=== PATIENT | female | born 1955 | race Caucasian/White ===

== ENCOUNTER → 2018-01-21 14:20 | Outpatient (CLI) | payer SELFPAY ==
--- NOTE | 2018-01-21 14:28 | BI_ITS ---
MAMMOGRAPHY - BILATERAL SCREENING REASON FOR EXAM: Female, 62 years old. Routine annual screening examination. PERTINENT HISTORY: Sister with breast cancer. TECHNIQUE: Digital bilateral breast charline (3D mammographic acquisition) in the CC and MLO projections. 2-D mediolateral oblique (MLO) and craniocaudad (CC) views of both breasts were obtained. CAD: Full Field Digital Mammography with Computer Added Detection was performed. COMPARISON: Comparison is made with prior study dated January 17, 2016. FINDINGS: Breast Composition: The breasts are almost entirely fatty. There are no dominant masses or suspicious calcifications. No other significant abnormalities are identified. There has been no significant change since the prior study. BI/SCREENING MAMM (CAD), BILAT IMPRESSION: Stable bilateral screening mammogram. Yearly follow-up mammogram recommended. (A) ASSESSMENT CATEGORY: BIRADS Category 1: Negative. A letter regarding these results will be sent to the patient by the facility within 30 days. Approximately 10% of breast cancers are not detected by mammography. A normal mammogram should not delay biopsy of a clinically suspicious abnormality. [id number] Electronically Signed: Cristian Vasquez MD at 8:12 EDT Tel [phone], Service support ,
--- NOTE | 2018-01-21 14:29 | BD_ITS ---
STUDY: DUAL ENERGY X-RAY ABSORPTIOMETRY / DXA REASON FOR EXAM: Female, 62 years old. The patient is postmenopausal. Loss of height. TECHNIQUE: Bone Mineral Density (BMD) measurements of both forearms were obtained. COMPARISON: Comparison is made with prior study January 17, 2016. FINDINGS: Right Forearm: g/cm2 (1.059) / T-score (1.9) / Z-score (3.0) Left Forearm: g/cm2 (1.019) / T-score (1.5) / Z-score (2.5) BD/Dexa Bone Density/Append Skel IMPRESSION: The patient is considered normal as outlined below according to World [place] Organization (WHO) criteria with a low fracture risk. Reference Information: The T-score is the number of standard deviations above or below the standard which is normal for young adults at their peak bone mineral density. The World Health Organization (WHO) interprets the T-scores as follows: Above -1 Normal bone density Between -1 and -2.5 Osteopenia Equal to / or below -2.5 Osteoporosis As a practical clinical guideline, osteopenia may be graded as follows: Mild -1 through -1.5 Moderate -1.6 through -2.0 Severe -2.1 through -2.4 The Z-score is the number of standard deviations above or below age-matched controls. A Z-score of less than -1.5 would be considered abnormal. References: 1. NIH Osteoporosis and Related Bone Diseases http://www.osteo.org 2. International Society for Clinical Densitometry http://www.iscd.org 3. National Osteoporosis Foundation http://www.nof.org Electronically Signed: Cristian Vasquez MD at 15:44 EDT Tel [phone], Service support ,
== END ==
PROVIDERS: Family Provider Nurse Practitioner; PCP Nurse Practitioner; Visit Provider Nurse Practitioner
DX: Z12.31 Encounter for screening mammogram for malignant neoplasm of breast (principal); Z78.0 Asymptomatic menopausal state
CPT/HCPCS: 77063; 77067; 77081

== ENCOUNTER → 2019-03-05 12:14 | Outpatient (CLI) | payer SELFPAY ==
--- NOTE | 2019-03-05 12:20 | BI_ITS ---
MAMMOGRAPHY - BILATERAL SCREENING REASON FOR EXAM: Female, 63 years old. Routine annual screening examination. PERTINENT HISTORY: Sister with breast cancer. TECHNIQUE: Digital bilateral breast janine (3D mammographic acquisition) in the CC and MLO projections. 2-D mediolateral oblique (MLO) and craniocaudad (CC) views of both breasts were obtained. CAD: Full Field Digital Mammography with Computer Added Detection was performed. COMPARISON: Comparison is made with prior study dated January 21, 2018 and January 17, 2016. FINDINGS: Breast Composition: The breasts are almost entirely fatty. There are no dominant masses or suspicious calcifications. Stable benign-appearing bilateral axillary lymph nodes. No other significant abnormalities are identified. There has been no significant change since the prior study. BI/SCREEN MAMM (CAD) W/JANINE BILAT IMPRESSION: Stable bilateral screening mammogram. Yearly follow-up mammogram recommended. (A) ASSESSMENT CATEGORY: BIRADS Category 2: Benign. A letter regarding these results will be sent to the patient by the facility within 30 days. Approximately 10% of breast cancers are not detected by mammography. A normal mammogram should not delay biopsy of a clinically suspicious abnormality. [id number] Electronically Signed: Cristian Vasquez, at 13:53 EST , Service support ,
== END ==
PROVIDERS: Family Provider Nurse Practitioner; PCP Nurse Practitioner; Referring Provider Nurse Practitioner; Visit Provider Nurse Practitioner
DX: Z12.31 Encounter for screening mammogram for malignant neoplasm of breast (principal); Z80.3 Family history of malignant neoplasm of breast
CPT/HCPCS: 77063; 77067

== ENCOUNTER 2021-07-06 14:23 | Outpatient (CLI) | payer OTHER, SELFPAY ==
--- NOTE | 2021-07-06 14:35 | BI_ITS ---
MAMMOGRAPHY - BILATERAL SCREENING REASON FOR EXAM: Female, 65 years old. Routine annual screening examination. PERTINENT HISTORY: Sister with breast cancer. TECHNIQUE: Digital bilateral breast janine (3D mammographic acquisition) in the CC and MLO projections. 2-D mediolateral oblique (MLO) and craniocaudad (CC) views of both breasts were obtained. CAD: Full Field Digital Mammography with Computer Added Detection was performed. COMPARISON: Comparison is made with prior examination dated 03/05/2019 and 01/21/2018. FINDINGS: Breast Composition: The breasts are almost entirely fatty. There are no dominant masses or suspicious calcifications. Stable small benign-appearing bilateral axillary nodes. Stable scattered microcalcifications. No other significant abnormalities are identified. There has been no significant change since the prior study. BI/SCRN MAMM (CAD)W/JANINE BILAT IMPRESSION: Stable bilateral screening mammogram. Yearly follow-up mammogram recommended. (A) ASSESSMENT CATEGORY: BIRADS Category 2: Benign. A letter regarding these results will be sent to the patient by the facility within 30 days. Approximately 10% of breast cancers are not detected by mammography. A normal mammogram should not delay biopsy of a clinically suspicious abnormality. [id number] Electronically Signed: Cristian Vasquez MD at 15:36 EST ,
== END 2021-07-06 23:59 | disposition home or self-care (01) ==
PROVIDERS: PCP Nurse Practitioner; Visit Provider Nurse Practitioner
DX: Z12.31 Encounter for screening mammogram for malignant neoplasm of breast (principal); Z80.3 Family history of malignant neoplasm of breast
CPT/HCPCS: 77063; 77067

== ENCOUNTER 2023-07-08 08:27 | Outpatient (RCR) | payer OTHER, SELFPAY | END 2023-07-28 23:59 | LOC: NS 08:27 | PROVIDERS: PCP Nurse Practitioner Family; Referring Provider Specialist; Visit Provider Specialist | DX: M25.551 Pain in right hip (principal); E66.01 Morbid (severe) obesity due to excess calories; Z68.41 Body mass index [BMI] 40.0-44.9, adult; M16.11 Unilateral primary osteoarthritis, right hip | CPT/HCPCS: 97802 ==

== ENCOUNTER 2023-08-07 13:30 | Outpatient (RCR) | payer OTHER, SELFPAY ==
--- NOTE | 2023-07-10 11:31 | HP.PTEVAL ---
Patient's Visit Information Visit Information Visit Information: BOBBY OCHOA is a 67 year old F referred to Physical Therapy by Dr. Cody Holley MD with a diagnosis of LBP, R hip OA, Pain in R hip. Date of Evaluation: 07/10/23 Physical Therapist: MARGARET Deras Visit Plan Frequency: 2x /Week Duration: 2 Months Plan: 2X/ week for 8 weeks for R hip and knee AROM/PROM/AAROM, strengthening of the R hip starting on the mat table and progressing to standing (even if it is standing on the L LE), neutral spine core stability, gait training, functional activities with HEP HEP: bridges, heel slides, QS, supine hip abd Subjective Subjective: Pt is scheduled for hip surgery September 03. She is not sure she can wait that long with the pain. She is having a THR. She is also having back pain and R knee pain as well. She is not sure she can do PT due to the pain. She takes Advil as needed for the pain and at times it does not touch the pain. She can not go for walks since last fall due to being in so much pain. She is not doing any exercises at home. She has stairs to go to the basement. It is has a railing as well and goes 2 feet to a stair. She has back pain when she walks and light housework as well. She feels that standing bothers her back more than sitting. She sleeps ok but wakes often but it is not due to pain. She has a hard time getting situated in bed at night. Pain R hip pain: Pain Intensity (Out of 10): 0 Pain Intensity Range: 7 LBP: Pain Intensity (Out of 10): 7 Objective Objective: Gait: Walks with shorter stride length and increase trunk flexion. Walks with decrease arm swing LE MMT: R hip flex 10.7 and L 13.2 R knee ext 22.6 and L 21.7 R knee flex 10.1 and L 9.9 R hip abd 10.1 and L 10.9 Bridges: 1/2 normal ROM Tight into HS, gastroc, heel slides Balance/Special Test Scores Lower Extremity Functional Score: 23 Goals Goal 1:: I HEP Goal Time Frame: 6-8 Weeks Goal 2:: Decrease pain and be able to settle down more quickly at night when going to sleep without having to toss and turn Goal Time Frame: 6-8 Weeks Goal 3:: Increase LE strength (at the time of the eval: LE MMT: R hip flex 10.7 and L 13.2 R knee ext 22.6 and L 21.7 R knee flex 10.1 and L 9.9 R hip abd 10.1 and L 10.9 Bridges: 1/2 normal ROM) Goal Time Frame: 6-8 Weeks Goal 4:: Be able to walk a little farther per subjective with less pain Goal Time Frame: 6-8 Weeks Anticipated Interventions Patient/Client Instruction: Educate patient on: Condition and Plan of Care For the Purpose of:: To decrease pain, To increase ROM, To improve nutrient delivery to tissue, To improve muscle performance and motor function, To improve ability to perform ADL's, To increase tolerance to activity/condition/position, To improve performance and independence with ADL's, To decrease level of supervision to perform tasks, To improve ability of physical actions for home/community/work/leisure, To improve gait and locomotor functions, To improve health of tissue, To decrease soft tissue restriction and To increase flexibility/ROM Therapeutic Exercise to Include: Strength training, Endurance training, Postural training, Flexibilty training, Gait and locomotor training, Neuromotor development, Passive ROM, Active ROM and Dynamic Lumbar Stabilization For the Purpose of:: To decrease pain, To increase ROM, To improve nutrient delivery to tissue, To improve muscle performance and motor function, To improve ability to perform ADL's, To increase tolerance to activity/condition/position, To improve performance and independence with ADL's, To decrease level of supervision to perform tasks, To improve ability of physical actions for home/community/work/leisure, To improve gait and locomotor functions, To improve health of tissue, To decrease soft tissue restriction, To increase flexibility/ROM, To improve endurance and To improve safety with gait Functional Training to Include: Gait training For the Purpose of:: To improve gait and locomotor functions and To improve safety with gait Manual Therapy Techniques to Include: Passive ROM For the Purpose of:: To increase ROM Text: Thank you for the opportunity to evaluate your patient. For Medicare and Medicare HMO plans, please review the plan of care and approve it. It will need to be FAXED BACK to us at [phone] for Medicare purposes. For Medicare only, by signing this I certify the plan of care. Please let me know if there are questions or concerns regarding this plan of care. Physician Signature: Date:
--- NOTE | 2023-08-07 14:00 | HP.PTDCSUM ---
Discharge Summary D/C summary: It has been my pleasure to treat BOBBY OCHOA referred by Dr. Cody Holley MD, with the diagnosis of LBP, R hip OA, Pain in R hip for a total of 5 visit(s). Discharge Date: 08/07/23 Please see the following information for a summary of their discharge status. Subjective Subjective: Last week she did not have a good week but this week is much better. She did walk a little way down the road to sons house that was up hill and down hill on way back. The Dr is scheduled surgery September 03. She is doing exercises at home. She feels that if she keeps up her routine at home it will help the pain till surgery. The pain is comes and goes. Her R hip is more relaxed when she goes to sleep. Pain R hip pain: Pain Intensity (Out of 10): 2 LBP: Pain Intensity (Out of 10): 2 Overall Improvement % Improvement: 55 Objective Objective/Function: Not progressing as far as walking distance goes. LE MMT: R hip flex 15 and L 13.4 R knee ext 28 and L 22 R knee flex 14 and L 17 Discussed importance of continuing HEP Goals Goal 1:: I HEP Goal Progress: Goal Met Goal 2:: Decrease pain and be able to settle down more quickly at night when going to sleep without having to toss and turn Goal Progress: Goal Met Goal 3:: Increase LE strength (at the time of the eval: LE MMT: R hip flex 10.7 and L 13.2 R knee ext 22.6 and L 21.7 R knee flex 10.1 and L 9.9 R hip abd 10.1 and L 10.9 Bridges: 1/2 normal ROM) Goal Progress: Goal Met Goal 4:: Be able to walk a little farther per subjective with less pain Goal Progress: Not Progressing Plan Plan: DC PT to HEP D/C Information Discharge Comments: DC PT to HEP d/c sentence: If there are questions or concerns regarding this patient's physical therapy, please feel free to call me at [phone]. Thank you for the referral of this patient. Sincerely, Maggie Toro, MPT Balance/Gait/Functional tests Balance/Special Test Scores Lower Extremity Functional Score: 26 Improvement % Improvement: 55
== END 2023-08-07 19:00 | disposition home or self-care (01) ==
LOC: PT 13:30
PROVIDERS: PCP Nurse Practitioner Family; Referring Provider Specialist; Visit Provider Specialist
DX: M54.50 Low back pain, unspecified (principal); M16.11 Unilateral primary osteoarthritis, right hip; M25.551 Pain in right hip
CPT/HCPCS: 97110; 97161; 97530

== ENCOUNTER 2023-09-04 11:37 | Observation (INO) | payer SELFPAY, OTHER ==
--- NOTE | 2023-08-08 12:29 | EKG12_ITS ---
Test Reason : PRE OP Blood Pressure : / mmHG Vent. Rate : 072 BPM Atrial Rate : 072 BPM P-R Int : 158 ms QRS Dur : 084 ms QT Int : 388 ms P-R-T Axes : 024 -12 -14 degrees QTc Int : 424 ms Normal sinus rhythm Low voltage QRS Nonspecific T wave abnormality Abnormal ECG Confirmed by Matty Saleh ([id number]), map editor EDGAR CALDERON ([id number]) on 08/09/2023 7:23:20 AM Referred By: Cody Holley Confirmed By:Matty Saleh
[2023-08-08 13:00] LABS: Absolute Lymphocyte Count 1.93 X10^3/uL (0.83-4.51); Absolute Neutrophil Count 3.7 X10^3/uL (2.0-7.7); Basophil# 0.04 X10^3/uL; Basophil% 0.6 % (0-1); Eosinophil# 0.18 X10^3/uL; Eosinophils% 2.8 % (0-5); Hematocrit 41.8 % (37-47); Hemoglobin 13.6 g/dL (12.0-15.0); Lymphocyte # 1.93 X10^3/ul (0.83-4.51); Lymphocyte % 30.4 % (19-41); Mean Corp Hgb Conc 32.5 g/dL (32-36); Mean Corpuscular Hgb 29.2 pg (27.0-32.0); Mean Corpuscular Volume 89.7 fL (81-99); Mean Platelet Vol. 10.3 fl (6.2-12.0); Monocyte# 0.49 X10^3/uL; Monocyte% 7.7 % (0-10); NRBC Flagged by Analyzer 0 % (0-5); Neutrophil % 58.3 % (47-70); Platelet Count 217 K/mm3 (150-450); RBC Distribution Width CV 13.7 % (11.6-14.6); Red Blood Count 4.66 M/mm3 (4.2-5.4); White Blood Count 6.4 K/mm3 (4.4-11.0)
[2023-08-08 13:21] LABS: Albumin, Serum 3.6 g/dL (3.2-5.0); Anion Gap 3 (5-15); BUN 9 mg/dL (7-18); BUN/Creat Ratio 10.8 RATIO (10-20); Calcium,Total 9.6 mg/dL (8.5-10.1); Chloride 108 mmol/L (98-107); Creatinine, Serum 0.84 mg/dL (0.55-1.02); EST Glomerular Filtration Rate 72 mL/min (>60); Est Glom Filt Rate - Afr Amer 88 mL/min (>60); Glucose 82 mg/dL (74-106); Potassium 3.8 mmol/L (3.5-5.1); Sodium Level 140 mmol/L (136-145)
[2023-08-08 13:36] LABS: Magnesium 2.1 mg/dL (1.6-2.6)
--- NOTE | 2023-08-26 12:34 | PCM.HP.BLA ---
History and Physical History and Physical? Patient Name: Lila Blackburn : 1955 From:? ANGELA WALTERS PA-C? DATE OF PRE-OPERATIVE EXAM: 08/26/2023 DATE OF SURGERY:? 09/04/2023 SCHEDULED PROCEDURE:? Right total hip arthroplasty HISTORY OF PRESENT ILLNESS: Preoperative history and physical exam was performed on August 26, 2023.? This is a 67-year-old female who has been having ongoing pain for several years in the right hip.? Her pain can reach 8/10 with activities.? Patient's pain is been achiness and sharp in the hip.? Pain is increased with going up and down stairs, walking.? She has start up pain.? Pain is located in the right groin.? Pain occasionally awakens her at night.? She has difficulty with getting dressed putting on her socks and shoes, housework, and shopping.? Patient has tried erjw-gbk-hdnaaeu ibuprofen with no significant relief.? She has been through acute care clinical nurse specialist without relief.? She has gone through weight loss without relief in her symptoms.? She denies past history of surgery on her right hip.? Patient has had previous lumbar spinal fusion.? She does get some residual pain and discomfort and her back at times.? She has obtain surgical clearance from the primary care provider Aurelia Puga.? She has no previous history of DVT or pulmonary embolism.? Patient has medical history pertinent for depression, hypertension, vitamin D deficiency and vitamin B12 deficiency.? Denies any recent fevers, chills, recent infections.? No recent chest pain or shortness of breath.? After failing conservative measures and discussing all treatment options with Dr. Cody Holley, the patient does wish to proceed with a direct anterior right total hip arthroplasty. REVIEW OF SYSTEMS: Review Of Systems: Constitutional: Reports anxiety, but denies anorexia, change in appetite, fever, difficulty sleeping, weight change. Cardiovasular: Denies chest pain, heart murmur, irregular heartbeat and peripheral vascular disease. Respiratory: Denies asthma, cough, pneumonia, sleep apnea, shortness of breath, tuberculosis and wheezing. Gastrointestinal: Reports constipation, diarrhea and nausea, but denies heartburn, rectal itching, bloody stools and vomiting. Genitourinary: Denies incontinence. Musculoskeletal: Reports pain and trouble walking, but denies leg swelling and weakness. Skin: Denies Raynaud's, history of shingles and tattoo. Neurological: Reports numbness/tingling but denies ambulatory dysfunction, dizziness and tremor. Psychiatric: Reports anxiety and stress, but denies depression, insomnia and mental illness. Hematologic/Lymphatic: Reports anemia and past transfusion, but denies bleeding/bruising tendency. Reviewed, no changes. PAST MEDICAL HISTORY: Advance Care Plan: No Advance Directives Effective Date: 01/29/2018 Other Directive, LIVING WILL Effective Date: 06/27/2023 Past Medical History: Medical Problems: Depression, High Blood Pressure, vitamin D deficiency, Vitamin B12 deficiency Accidents: None Surgical Hx: Gallbladder - (1980) [facility] Hernia Repair - (2007) [facility] Hysterectomy - (2003) [facility] Back Surgery In [place] In September Of 2016 Knee Replacement RT - (05/12/2018) [email or web address] LT TKR - (09/15/2018) [email or web address] Section - (1988) TOI PHILLIPS? Anesthesia Complications: None Assistive Devices: Glasses, Dentures Reviewed and updated. SOCIAL HISTORY: Social History: Marital: .Occupation: Homemaker.Work Status: Housewife.Hand Dominance: Right-handed. Personal Habits:? Cigarette Use: Never.Smokeless Tobacco: Never Used Smokeless Tobacco.E-Cigarette Use: Never used.Alcohol: Denies use.Drug Use: Denies Use.Enjoy Exercising: Exercises 1-3 X/Week. Reviewed, no changes. VITALS: Ht: 62 Wt: 219lb Wt k.338 BMI: 40.1 BP: 112/68 Pulse: 69 Resp: 16 T: 97.8 T: 36.6C Pain Level: 5 O2SatR: 97 ALLERGIES: No Known Drug Allergy? MEDICATIONS: Mobic 7.5 mg 1 by mouth twice a day, Lisinopril 20 mg 1 by mouth every day, Vitamin D 50 mcg (1999 [place]) not through pcp PRE-OP EXAM:? General appearance:NORMAL? ? ? Other: Eyes: Conjunctivae and lids: NORMAL? Pupils: ERR Ears, Nose, Mouth, and Throat: NORMAL? Other: Inspection of lips, teeth and gums: NORMAL? ?Other: Neck: Examination of neck: no masses noted. Respiratory: Assessment of respiratory effort: NORMAL? ?Other: ?Auscultation of lungs: clear to auscultation no wheezes, rhonchi or rales. Cardiovascular:? Auscultation of heart: regular rate and rhythm, positive systolic murmur PHYSICAL EXAMINATION: Patient does walk with an antalgic gait.? Right hip is without any erythema or signs of infection.? No rash appreciated in the skin fold with skin pannus.? She has tenderness to palpation over the right lateral hip at the greater trochanteric region.? She has obligatory rotation with hip flexion, hip flexion 40, internal rotation 15, external rotation 15.? She has 2/5 hip flexion strength secondary to pain.? There was no appreciable rash or skin irritation in the skin pannus right hip. IMAGING STUDIES: Previous x-rays of the right hip reveal joint space narrowing, subchondral sclerosis, osteophyte formation consistent with severe stage IV soyc-lv-coyf osteoarthritis.? There is also evidence of lumbar spinal fusion. IMPRESSION: 1.? Severe right hip osteoarthritis 2.? History of lumbar spine fusion 3.? Depression 4.? Hypertension 5.? Vitamin D deficiency 6.? Vitamin B12 deficiency 7.? Morbid obesity with BMI 40.1 PLAN: Dr. Cody Holley did discuss and review with the patient all treatment options including surgical versus nonsurgical options.? Patient does wish to proceed with the above-stated procedure.? Potential risks, benefits, and complications of the procedure were discussed in detail including but not limited to , infection, nerve and blood vessel damage, persistent pain, numbness, tingling, paresthesias, blood clot, pulmonary embolism, and requirement for possible further surgery.? The patient expressed full understanding and has no further questions for the doctor.? Patient does agree to proceed with the above-stated procedure and has signed the surgery consent form. POST-OP MEDICATION PLAN: Pain Medications: Postoperative pain regimen will be initiated by Dr. Cody Holley in the hospital.? Patient was instructed of the morbid obesity and she will be placed on doxycycline for 2 weeks postoperatively.? I advised her that she is more sensitive to the sunlight on this medication and should take appropriate precautions.? Patient will also use bofs-ial-lgwaclr probiotic supplement.? I also advised patient that once she removes the Mepilex dressing she is to be using a 4 x 4 gauze pad detecting the proximal incision from the skin pannus.? She voiced understanding and agreement. DVT Prophylaxis:? Aspirin 81 mg twice daily for 4 weeks postoperatively.? Denies past history of DVT or pulmonary embolism This dictation was created using voice recognition software. Phonetic and/or grammatical errors may exist. ___? I have re-examined the patient.? There are no clinical changes since date of exam. ___? See progress notes for changes. ___? Dictated on admission Date: ? ? ?Time: Signature:
[2023-09-04] VITALS (14 sets, daily range): BP systolic 87–129; BP diastolic 54–79; PULSE 48–95; RESP 14–18; TEMP 36.1–36.6; O2SAT 92–100; BMI 39.5
[2023-09-04] MEDS: Lactated Ringers 1,000 ML 999 ML IV ×2 (07:28→12:27)
[2023-09-04] MEDS: Magnesium 1 GM over 15 mins IV (07:28)
[2023-09-04] MEDS: Celecoxib 200 MG Capsule 400 MG PO (07:36)
[2023-09-04] MEDS: Gabapentin 600 MG Tablet PO (07:36)
[2023-09-04] MEDS: Acetaminophen 500 MG Tablet 1000 MG PO ×2 (07:36→22:12)
[2023-09-04 08:07] LABS: Bedside Glucose 75 mg/dL (74-106)
--- NOTE | 2023-09-04 10:00 | HIP_PTH ---
PATIENT: BOBBY OCHOA LOC: MS3 U#:[id number] AGE/SX: 67/F [place] [facility] [place]04[place]: Dr. Cody Holley MD : 1955 BED: 1 DIS: 09/06/2023 SPEC #: [id number] RECD: 09/04/23 12:51 STATUS: ARLENE SARA #: [id number] CLAUDIA: 09/04/23 10:[address]: Cody Holley DEPT: SURGICAL PATHOLOGY RECD BY: Brinda Rojas ENTERED: 09/04/23 13:29 SP TYPE: TOTAL HIP OTHR DR: Aurelia Puga, RENEE-Lee Tissues: Hip, NOS Procedures: Decalcification bone/plaque Surgery Specimen Level IV HEADER OPERATION: ERAS, anterior right total hip arthroplasty PRE-OP DIAGNOSIS: Right hip osteoarthritis TISSUE SUBMITTED: Bone and soft tissue right hip MICROSCOPIC DIAGNOSIS Bone and tissue of right hip, total hip resection: Severe degenerative joint disease. Mild synovial hyperplasia. AM: 09/09/2023 MICROSCOPIC DESCRIPTION Slides are reviewed. GROSS DESCRIPTION Received is one container labeled with the patient's name and designated bone and soft tissue right hip. The specimen consists of a cadena femoral head (with portion of femoral neck). The femoral head measures 5.0 x 5.0 x 4.0 cm. Also present in the container is a piece of bone consistent with a portion of femoral neck which measures 3.5 x 1.5 x 1.0cm. The articular surface displays prominent osteophyte formation, eburnation and bone erosion. Also present in the specimen container are multiple irregular fragments of bone reamings and pink-yellow soft tissue measuring in aggregate 9.0 x 9.0 x 2.5 cm. Basket Hand Weaver sections are submitted in two cassettes as follows: 1 - soft tissue, 2 - femoral head after decalcification. UVALDO/ 09/04/23 TC:5 CPT: 72299, 15183
[2023-09-04] MEDS: dexAMETHasone 10 MG/ML Vial IV (10:15)
[2023-09-04] MEDS: Cefazolin 2 GM in 0.9% Normal Saline (100mL Bag) 100 ML IV (10:15)
[2023-09-04] MEDS: TXA 1000mg in NS100 100ml (IVPB at Incision) 660 MG IV (10:33)
--- NOTE | 2023-09-04 11:10 | RAD_ITS ---
STUDY: X-RAY - PELVIS AND RIGHT HIP REASON FOR EXAM: Female, 67 years old. PAIN TECHNIQUE: 3 fluoroscopic spot films of the pelvis and right hip. COMPARISON: None. FINDINGS: There is a new right hip arthroplasty replacement. There is no periprosthetic fracture. There is adjacent soft tissue gas, compatible with recent surgery. There is a non-specific bowel gas pattern. Normal visualized soft tissue structures. Normal visualized right iliac bone. Normal right superior and inferior pubic rami. Normal pubic symphysis. Normal right ischial tuberosity. RAD/Hip 1 view with Pelvis IMPRESSION: New right hip arthroplasty replacement, with no periprosthetic fracture. Electronically Signed: Saran Nguyen MD at 12:04 EDT ,
[2023-09-04] MEDS: TXA 1000mg in NS100 100ml (IVPB at Closure) 660 MG IV (11:26)
--- NOTE | 2023-09-04 11:35 | PCM.OPRPT ---
Report of Operation Date of Procedure: 09/04/23 Pre-Operative Diagnosis: Right hip primary osteoarthritis Post-Operative Diagnosis: Right hip primary osteoarthritis Surgery/Procedure Performed:: Right minimally invasive direct anterior total hip replacement Description of Surgical Findings:: Stable hip with equal leg length Surgeon: Cody Holley stone and plate preparer apprentice: Campbell Cloud Type of Anesthesia: General Anesthesiologist: Elroy Castro Special Medications: 2 g Ancef, 1 g TXA at incision, 1 g TXA closure, 10 mg Decadron, joint cocktail (5 mg Duramorph, 30 mL of 0.5% Ropivicaine, 1000 units of epinephrine, 30 mg of Toradol) Specimen's removed: Bony cuts Estimated Blood Loss (mL): 600 Fluids Replaced: 1500 ml Description of Procedure: Components used: 1. Insignia [place] femoral stem size 4 high offset 2. Morris trident 2 acetabular shell size 52 mm 3. [place] X3 polyethylene E 4. [place] Biolox delta 36mm, -5mm femoral head Brief history operative indications: 67 yo F who failed conservative measures for their hip osteoarthritis. X-rays were consistent with osteoarthritis including joint space narrowing, osteophyte formation and subchondral cysts. Total hip replacement was discussed with the patient with risks and benefits including but not limited to blood loss, DVTs, PEs, neurovascular damage, dislocation, general risks of anesthesia including loss of life. Patient demonstrated an understanding medical clearance is obtained the patient was consented for surgery. Procedure: On the date of procedure the patient's right hip was marked in the preoperative area. Patient was then taken back to the operating room where anesthesia assumed control of the C-spine and airway and administered anesthetic. Patient was transferred to the operating table and placed in the supine position. The hips were placed at the break of the bed and a sacral bump was placed. The right lower extremity was then prepped out in a sterile fashion using chlorhexidine while the surgeon scrubbed. The PA was vital in the positioning of the patient. Upon reentering the room the right lower extremity was draped in the standard orthopedic fashion and the incision was marked. A timeout was called and everyone agreed upon the side, the site, the procedure be performed, antibody given, and patient's identity. At this time incision was made through skin, subcutaneous tissue, and fat down to fascia. The fascia was then incised and the TFL was retracted laterally. A retractor was placed on the lateral border of the femoral neck. Attention was directed to the inferior portion of the approach and all crossing vessels were identified and appropriately coagulated. A retractor was then placed on the medial portion of the femoral neck. The anterior capsule was then cleared of all soft tissue and then H shaped capsulotomy was made. The retractors were then placed inside the capsule. The femoral neck was identified and a cleanup cut was made. At this time a power corkscrew was used to remove the femoral head. Attention was then turned toward the acetabulum where the soft tissues were appropriately retracted and the acetabulum was sequentially reamed to 52 mm. A 52 mm cup was then selected and impacted into place. Acetabular liner was impacted into place and locking mechanism was verified. The position of the acetabular cup was then verified under live fluoroscopy. Attention was then turned to the femur. Soft tissue releases on the medial and lateral femoral neck were appropriately done, the leg was externally rotated and lateralized. A Kenny retractor was placed medially and proximally to the greater trochanter this allowed appropriate visualization and exposure of the femoral canal. Rongeour was then used to remove excess lateral bone. A canal finder and entry broach were used to open the proximal canal. Once we verified we were down the femoral canal we subsequently broached up to a size 4 femur. The appropriate neck was placed in the previously selected head was trialed with a -5 mm neck. Traction was pulled and the hip was reduced with internal rotation. Once it was appropriately reduced and stability was checked. There was minimal shuck, equal leg lengths and appropriate stability with hyperextension and external rotation as well as with 90? flexion and internal rotation. Fluoroscopy was then also used to verify the position of the components and leg lengths using the contralateral side for comparison. The trial components were then dislocated the proximal femur was again exposed and the components were removed from the wound. The final components were verified and opened. The wound was copiously irrigated out with normal saline. The acetabulum was checked for any residual debris. The final components were placed and impacted. Traction and internal rotation were again used to reduce the hip. After adequate reduction the hip remained stable with appropriate leg lengths. The final components were once again checked with live fluoroscopy and were found to be satisfactory. The wound was then copiously irrigated with normal saline once more, and hemostasis was obtained. Closure was then done using #1 Vicryl runner to close the fascia. A 2-0 vicryl interuppted sutures were used to close the subcutaneous skin. A 3-0 Monocryl and Steri-Strips were used for final skin closure. A Silverlon dressing was placed. Patient was awakened by anesthesia and transferred to the [facility]. Patient was then transferred to the PACU for recovery. During the course of the procedure the physician network operations lead (PE) played a vital role. Their intimate knowledge of my steps in the procedure aided in safe and expedient completion of the procedure. The PE played a vital rolls in positioning particularly in obtaining the appropriate positioning of the sacral bump. The PE was also vital in the retraction of soft tissues during the exposure and especially the femoral work as this is a vital part of the procedure to prevent complications and fractures. The PE was also vital and protecting soft tissues during times of bony cuts and reaming. He also played a vital role in closure with my direct supervision. The PE was also important during reduction and dislocation of the joint and trials intraoperatively. Postoperative plan: Patient will get 24 hours postop antibiotics. Patient will get in-house physical therapy and will be weight-bear as tolerated. Patient will follow up in office in 2 weeks for a wound check and x-rays. Aspirin 81 mg twice daily. Complications No intraoperative complications Admit VTE Documentation VTE Present on Admission: No VTE Mechan Device Prophylaxis: SCD's and Thigh High TON Hose VTE Pharm Prophylaxis ordered?: Yes
[2023-09-04] MEDS: JPS (Morphine 10mg/ml) OPERA.SITE (11:36)
--- NOTE | 2023-09-04 12:38 | RAD_ITS ---
STUDY: X-RAY - PELVIS AND RIGHT HIP REASON FOR EXAM: Female, 67 years old. Post Op -- AP both hips on single mireya/lateral of op hip PACU TECHNIQUE: 2 views of the pelvis and hip. COMPARISON: None. FINDINGS: The patient is status post right total hip replacement. There is good alignment. Degenerative changes of the symphysis pubis. RAD/Hip Min 2 Views (Portable) IMPRESSION: The patient is status post right total hip replacement. There is good alignment. Electronically Signed: Cristian Vasquez MD at 13:00 EDT ,
--- NOTE | 2023-09-04 15:35 | CON.PCM.HO_ITS ---
Assessment & Plan Assessment/Plan (1) Hypertension: PLAN: Plan #RIght anterior total hip replacement due to osteoarthritis * today is POD 0. * management as per primary service orthopedics * PT/OT consult. Fall precautions * pain management as per primary service * incentive spirometry * #Hypotension: Blood pressures running low with systolic being in the 90s. Will hold lisinopril and hydrate with normal saline at 150 cc/h for total of 2 bags. #Hypertension: on lisinopril. Hold lisinopril due to BP running low. IV hydralazine prn DVT prophylaxis; as per primary service. Thank you for the courtesy of the consult. The hospitalist service will continue to follow with you. HPI Consult Data Date of Consult: 09/04/23 HPI Narrative Reason for Consultation: medical management HPI Narrative: BOBBY OCHOA, is a 67 F with a past medical history as outlined. She was admitted to the service of orthopedic surgery on 09/04/2023 for right total hip arthroplasty on account of ongoing right hip pain for several years. Pain was limiting her activities of daily living. She therefore had a right anterior total hip arthroplasty on 09/04/2023. Hospital service was consulted for medical management. Patient was seen and examined after surgery. She complained of lightheadedness and weakness. She also complained of a bit of pain in her knee. Pain was well- controlled. Review of systems otherwise negative. Her blood pressure has been running low, with her systolic in the 90s systolic. She denies any nausea or vomiting or diarrhea. [facility] Medical History (Updated 09/04/23 @ 15:[address] Mildred Cedeño MD) Anxiety Depression Heartburn History of IBS Hypertension Leg cramps Migraine headache Non-smoker Restless legs Wears dentures Wears glasses Home Medications calcium carb-Ca gluc 500 mg calcium-magnesium ox-Mg gluc 250 mg tablet (Calcium Magnesium) 2 tab PO DAILY 08/08/23 [History Last Taken 09/02/23] cartilage 40 mg-collagen II 10 mg-boron 5 mg-hyaluronate 3.3 mg tablet (Joint Health) 3 tab PO DAILY 08/08/23 [History Last Taken 09/02/23] cholecalciferol (vitamin D3) 125 mcg (5,000 unit) tablet (Vitamin D3) 125 mcg PO DAILY 08/08/23 [History Last Taken 09/02/23] lactobacillus combo no.11 15 billion cell sprinkle capsule (Probiotic) 1 cap PO DAILY 08/08/23 [History Last Taken 09/02/23] lisinopril 20 mg tablet 20 mg PO DAILY 08/26/23 [History Last Taken 09/03/23] Allergy/AdvReac Type Severity Reaction Status Date / Time No Known Allergies Allergy Verified 09/04/23 07:19 Surgical History (Updated 08/08/23 @ 08:47 by Alfreda Menendez) History of back surgery (~2016) History of (~1988) History of cholecystectomy (~1980) History of hernia repair (~2007) History of hysterectomy (~2003) History of total left knee replacement (~2018) History of total right knee replacement (~2018) Social History Smoking Status: Never smoker ROS Constitutional Constitutional: Reports fatigue, malaise and weakness; Denies anorexia, chills or fever(s) Eyes Eyes: Denies change in vision ENT HEENT: Denies dysphagia Cardiovascular Cardiovascular: Denies chest pain, edema, lightheadedness, palpitations, paroxysmal nocturnal dyspnea, rapid heart rate or syncope Gastrointestinal Gastrointestinal: Reports nausea; Denies abdominal pain, constipation, diarrhea or vomiting Genitourinary Genitourinary: Denies dysuria Musculoskeletal Musculoskeletal: Reports joint pain; Denies arthralgias or back pain Neurologic Neurologic: Reports dizziness; Denies confusion, disequilibrium, focal weakness, headache(s), numbness, seizure-like activity, seizures or syncope Psychiatric Psychiatric: Denies anxiety or depression Endocrine Endocrinology: Denies change in body appearance Physical Exam Const alert and oriented x3 Constitutional Narrative: looks frail and weak General Appearance: cooperative HEENT normocephalic, head/scalp atraumatic, hearing grossly normal bilaterally, moist oral mucous membranes and oropharynx normal Mouth: oral and palatal mucosa normal Eyes PERRL, EOMs intact bilaterally and conjunctivae normal Neck no lymphadenopathy and supple Resp normal respiratory effort, no retractions, no use of accessory muscles and clear to auscultation bilaterally Cardio regular rate, regular rhythm, S1 normal heart sound, S2 normal heart sound and no murmurs GI normal to inspection, nondistended, normoactive bowel sounds, soft to palpation, non-tender, non-distended and hepatosplenomegaly Extremity Extremity Narrative: intact dressing over right hip at site of surgery Neuro oriented x3, CN's II-XII intact bilaterally, no focal motor deficits and no sensory deficits noted Sensorium / Orientation: awake and alert Psych affect normal Lab / Micro Data 08/08/23 12:45 08/08/23 12:45 Labs: Laboratory Results - last 24 hr 09/04/23 07:20: POC Glucose 75 Imaging Radiology Impression Hip/Pelvis X-Ray 09/04/23 11:10 IMPRESSION: New right hip arthroplasty replacement, with no periprosthetic fracture. Electronically Signed: Saran Nguyen MD at 12:04 EDT , Hip X-Ray 09/04/23 12:38 IMPRESSION: The patient is status post right total hip replacement. There is good alignment. Electronically Signed: Cristian Vasquez MD at 13:00 EDT , Charges/Coding Visit Charges Inpatient E&M: 68479 Subs Hosp L2
[2023-09-04] MEDS: Ondansetron 4 MG/2 ML Vial IV (17:21)
[2023-09-04] MEDS: 0.9% Normal Saline (1000mL) 1,000 ML 150 ML IV (18:07)
[2023-09-04] MEDS: Cefazolin 1 GM/50 ML BAG IV (18:07)
[2023-09-04] MEDS: Senna/Docusate Sodium 1 Tablet 2 TABLET PO (22:12)
[2023-09-04] MEDS: Aspirin 81 MG TAB.CHEW PO (22:12)
[2023-09-05] MEDS: Cefazolin 1 GM/50 ML BAG IV (01:33)
[2023-09-05] MEDS: 0.9% Normal Saline (1000mL) 1,000 ML 150 ML IV (01:33)
[2023-09-05 04:04] VITALS: BP 95/56; PULSE 48; RESP 18; TEMP 36.4; O2SAT 96
[2023-09-05 06:33] VITALS: BP 91/56; PULSE 52; RESP 18; TEMP 36.5; O2SAT 94
[2023-09-05] MEDS: Acetaminophen 500 MG Tablet 1000 MG PO ×3 (06:37→21:25)
[2023-09-05 07:28] LABS: Hemoglobin 10.3 g/dL (12.0-15.0); Mean Corp Hgb Conc 31.2 g/dL (32-36); Mean Corpuscular Hgb 29.3 pg (27.0-32.0); Mean Corpuscular Volume 93.8 fL (81-99); Mean Platelet Vol. 10.9 fl (6.2-12.0); Platelet Count 189 K/mm3 (150-450); RBC Distribution Width CV 13.9 % (11.6-14.6); RBC Distribution Width SD 47.4 fl (35.1-43.9); Red Blood Count 3.52 M/mm3 (4.2-5.4); White Blood Count 12.3 K/mm3 (4.4-11.0)
[2023-09-05 08:09] LABS: Anion Gap 3 (5-15); BUN 10 mg/dL (7-18); BUN/Creat Ratio 14.6 RATIO (10-20); Calcium,Total 8.4 mg/dL (8.5-10.1); Chloride 113 mmol/L (98-107); Creatinine, Serum 0.69 mg/dL (0.55-1.02); EST Glomerular Filtration Rate 91 mL/min (>60); Est Glom Filt Rate - Afr Amer 110 mL/min (>60); Estimated Creatinine Clearance 75.63 ml/min; Glucose 103 mg/dL (74-106); Potassium 4.6 mmol/L (3.5-5.1); Sodium Level 143 mmol/L (136-145)
[2023-09-05] MEDS: Ensure Surgery 237 ML LIQUID PO ×2 (08:26→12:03)
[2023-09-05] MEDS: Aspirin 81 MG TAB.CHEW PO ×2 (08:26→16:56)
[2023-09-05 08:30] VITALS: BP 90/50; PULSE 52; RESP 16; TEMP 36.4; O2SAT 96
[2023-09-05] MEDS: Lactobacillis Acidophilus 1 CAP PO (09:33)
[2023-09-05] MEDS: Famotidine 20 MG Tablet PO (09:34)
[2023-09-05] MEDS: Cholecalciferol (Vit D3) 125 MCG CAPSULE (5,000 UNITS) PO (09:34)
[2023-09-05] MEDS: Senna/Docusate Sodium 1 Tablet 2 TABLET PO ×2 (09:34→21:25)
--- NOTE | 2023-09-05 11:56 | PN.ORTHO_ITS ---
Subjective Subjective The patient was sitting in bed side chair upon examination. Patient denies any chest pain, shortness of breath, nausea or vomiting, or calf pain. Pain is controlled on medications. No adverse overnight events. Patient does report that she has had some dizziness yesterday and has continued today. She states the dizziness is much better today. She has been having some softer blood pressure readings. Patient was treated with previous IV fluids. She does report that she has had this happen before with other surgeries. Nursing also reports that they did remove the scopolamine patch this morning. Patient has had the lisinopril on hold. Objective Data Objective Data Vital Signs: Vital Signs Temp Pulse Resp BP Pulse Ox O2 Del Method O2 Flow Rate 97.5 F L 52 L 16 90/50 L 96 Room Air 2 09/05/23 08:30 09/05/23 08:30 09/05/23 08:30 09/05/23 08:30 09/05/23 08:30 09/05/23 08:36 09/04/23 21:55 Oxygen Flow Rate (L/min) 2 Oxygen Delivery Method Room Air Weight: 98 kg Body Mass Index (BMI) 39.5 Intake & Output: Intake and Output for Last 24 Hours 09/03/23 09/04/23 09/05/23 23:59 23:59 23:59 Intake Total 2789.5 / 2789.5 2042.5 / 2042.5 Output Total 1075 / 1075 1200 / 1200 Balance 1714.5 / 1714.5 842.5 / 842.5 Lab / Micro Data 09/05/23 06:13 09/05/23 06:13 Labs: Laboratory Results - last 24 hr 09/05/23 06:13: WBC 12.3 H, RBC 3.52 L, Hgb 10.3 L, Hct 33.0 L, MCV 93.8, MCH 29.3, MCHC 31.2 L, RDW Std Deviation 47.4 H, RDW Coeff of Arleth 13.9, Plt Count 189, MPV 10.9, Sodium 143, Potassium 4.6, Chloride 113 H, Carbon Dioxide 27.0, Anion Gap 3 L, BUN 10, Creatinine 0.69, Estim Creat Clear Calc 75.63, Est GFR (MDRD) Af Amer 110, Est GFR (MDRD) Non-Af 91, BUN/Creatinine Ratio 14.6, Glucose 103, Calcium 8.4 L Micro: Microbiology 08/08/23 12:45 Swab (Method) Nasal Screen MRSA/MSSA - Final Radiography Diagnostic Testing: Radiology Impression Hip/Pelvis X-Ray 09/04/23 11:10 IMPRESSION: New right hip arthroplasty replacement, with no periprosthetic fracture. Electronically Signed: Saran Nguyen MD at 12:04 EDT , Hip X-Ray 09/04/23 12:38 IMPRESSION: The patient is status post right total hip replacement. There is good alignment. Electronically Signed: Cristian Vasquez MD at 13:00 EDT , Physical Exam Narrative Blood pressures have been soft, patient has been afebrile. Right hip is soft and supple SCDs and TON hose are in place bilaterally Patient is able to plantarflex and dorsiflex actively. Sensation is intact to light touch to saphenous, sural, superficial and deep peroneal, and tibial distribution. Dressing is clean dry and intact. Negative Homans bilaterally, negative signs and symptoms of DVT. Const alert, oriented x3 and no apparent distress Assessment & Plan Assessment/Plan (1) S/P total right hip arthroplasty: PLAN: 1. S/P right direct anterior total hip arthroplasty POD #1 2. Continue Pain Medications: Tylenol, meloxicam, oxycodone. Do not take any other nonsteroidal anti-inflammatories while using meloxicam/Mobic. 3. DVT Prophylaxis: Take 81 mg aspirin twice daily for 4 weeks postoperatively for DVT prophylaxis. Patient denies past history of DVT or pulmonary embolism. 4. PT/OT: Weightbearing as tolerated with walker 5. H & H: 10.3/33.0, vitals patient has had some lower blood pressure readings and some dizziness. Preoperative lab work on August 08, 2023 patient hemoglobin was 13.6. There was estimated blood loss 600 mL. 6. Reactive leukocytosis: 12.3, Afebrile. Patient did receive Decadron intraoperatively. No clinical signs of infection. 7. Currently on doxycycline for 2 weeks postoperatively due to elevated BMI greater than 40.0. I discussed with the patient potential side effects of doxycycline including sensitivity to the sunlight and increased risk of skin burn. Recommend patient take appropriate precautions. Also recommend patient to take probiotic while on the antibiotic. Patient voiced understanding agreement. 8. Postoperative dressing: I did discuss with the patient in detail about removal of the dressing. Patient does have a large pannus that I did inform her she should be using an ABD, 4 x 4, or clean washcloth to place in between the medial portion of the incision and skin pannus. I did explain to her that if she does not protect this area this can cause incision irritation and breakdown. She should keep this clean and dry. Do this for the next 4 weeks. She was also instructed not to place any salves, ointments, Neosporin or topicals over the incision for 6 weeks postoperatively. Only use gentle soap and water. 9. Continue postoperative medical management per medicine: Case was discussed in detail with the medicine provider and at this time advised adding 1 L LR and have orthostatic vitals after this. She is currently with some low blood pressure and dizziness. Medicine will evaluate patient today. If she is stable and no dizziness this afternoon consider discharge home. I did advise the patient of this plan. Patient states she does have the ability to take her blood pressure at home. I did advise her to do this on a daily basis. Medicine did recommend holding the lisinopril for 4 days postoperatively. Patient was instructed to not take her blood pressure medication if her systolic blood pressure is less than 100 mmHg. I did explain to the patient that there have been any concerns with her blood pressure upon discharge or when to resume her medication she can discuss this with her primary care physician as well. 10. Encouraged Incentive Spirometry 11. Postoperative constipation: Patient will continue with the senna until she has her first bowel movement. I did advise her that it can take 1-3 days postoperatively to have her first bowel movement. Recommend continuing appropriate fluid intake at home and up and moving for activity. If she does not have a bowel movement after day 3 she should be contacting our office to have appropriate change. She voiced understanding agreement 12. Disposition: At this time discharge home will be based upon when patient is medically stable. She is currently having some lower blood pressure readings and dizziness. Patient will be getting some IV fluid and have orthostatic vitals assessed. Per medicine if she is having no dizziness and her blood p ressure is stable possible discharge this afternoon. Appreciate recommendations from medical standpoint. I did discuss with the patient that we will prep her for possible discharge home. She would like her prescriptions E scribed to [facility] outpatient pharmacy. She does have outpatient physical therapy established. She will follow-up per postoperative instructions. Upon discharge she will contact her office with any concerns or questions. I have reviewed the [place] Automated Rx Reporting System (OARRS) report for this patient for refill pattern and other prescriber involvement as part of the appropriate surveillance for the provision of acute and chronic controlled me dications. The report was requested and reviewed on the date of this entry and was considered in the prescribing process. This dictation was created using voice recognition software. Phonetic and/or grammatical errors may exist.
[2023-09-05] MEDS: Lactated Ringers 500 ML 999 ML IV (11:58)
[2023-09-05] MEDS: 0.9% Saline Lock 10 ML Syringe IV ×4 (11:58→23:11)
--- NOTE | 2023-09-05 12:07 | PCM.DC ---
Discharge Instructions Diet Discharge Diet: No restrictions Activity Discharge Activity: May Not Drive (while taking narcotic pain medications.) May shower in (days): 1 (only if incision is dry and without drainage. Do NOT soak/submerge in tub/pool/jimenez/stream/hot tub.)) Ice area for (Minutes): 20 (Every 1-2 [address] barrier between ice and skin.) Weight Bearing Status: Weight bearing as tolerated Keep extremity elevated above heart level: Operative Extremity Additional Activity Instructions:: Follow [facility] Post-op Instructions. Once postoperative dressing has been removed only use gentle soap and water over the incision. Do not use any ointments, Neosporin, salves, alcohol pads over the incision for 6 weeks postoperatively. Do not submerge underwater for 6 weeks postoperatively. Wear elastic stockings for 2 weeks. Do NOT use alcohol with narcotic pain medication. Do NOT make important decisions while taking narcotic medication. If you have problems with taking your medication (rash, itching, nausea, etc.) call the office at once. Dressing / Incision Call your doctor if your incision/area has: Continuous Slow Oozing, Sudden Increased Bleeding, Increased Pain/ Swelling, Increased Redness and Foul Smelling Discharge Call your doctor if you observe: Fever of 101 or Higher, Shortness of breath, Chest pain, Calf discomfort and Uncontrolled pain Remove Dressing in: 4 days (Okay to remove dressing on September 09, 2023. Upon removal of dressing will use ABD, 4 x 4, or washcloth to protect the incision for 4 weeks postoperatively.) Additional Dressing/Incision Instructions:: Follow [facility] Post-op Instructions. Once postoperative dressing has been removed, only use gentle soap and water over the incision. Do not use any ointments, Neosporin, salves, alcohol pads over the incision for 6 weeks postoperatively. Do not submerge underwater for 6 weeks postoperatively. Continue with TON hose/elastic stockings for 2 weeks postoperatively. May remove at nighttime but needs to be placed back on the leg during the day. Do NOT use alcohol with narcotic pain medication. Do NOT make important decisions while taking narcotic medication. If you have problems with taking your medication (rash, itching, nausea, etc.) call the office at once. Follow Up Care Test Results: Test results from this visit will be discussed in further detail at your follow-up appointment, if applicable. Discharge Plan Admission Admit Date/Time: 09/04/23 11:37 Attending Provider: Cody Holley Primary Care Provider: Aurelia Puga Consulting Providers: Mildred Cedeño; Jessica Nguyen Discharge Orders/Prescriptions Prescriptions: New acetaminophen 500 mg Tablet 1,000 mg PO Q8 Qty: 0 0RF Rx Instructions: Do not take more than 3000 mg Tylenol in a 24-hour period. aspirin 81 mg capsule 81 mg PO BIDCM 30 Days Qty: 60 0RF Rx Instructions: Take 81 mg aspirin twice daily for 4 weeks postoperatively for DVT prophylaxis. Patient denies past history of DVT or pulmonary embolism. doxycycline monohydrate 100 mg Capsule 100 mg PO BID 14 Days Qty: 28 0RF famotidine 20 mg Tablet 20 mg PO DAILY 30 Days Qty: 30 0RF meloxicam 7.5 mg Tablet 7.5 mg PO BIDCM 30 Days Qty: 60 0RF Rx Instructions: Do not take any other nonsteroidal anti-inflammatories while using meloxicam/Mobic. oxycodone 5 mg Tablet 5 - 10 mg PO Q4H PRN PRN (Reason: as needed for pain) 7 Days Qty: 42 0RF Continued Calcium Magnesium 500 mg calcium -250 mg tablet 2 tab PO DAILY [facility] 40-10-5-3.3 mg tablet 3 tab PO DAILY cholecalciferol (vitamin D3) [Vitamin D3] 125 mcg (5,000 unit) tablet 125 mcg PO DAILY Probiotic 15 billion cell capsule, sprinkle 1 cap PO DAILY Rx Instructions: do not crush/chew/cut; swallow whole OR may open and sprinkle in cold drink/food Held lisinopril 20 mg tablet 20 mg PO DAILY Hold Instructions: Resume on 09/13/23. Do not resume medication until cleared by your PCP. Other Ambulatory Orders: 12 Lead EKG (Routine) Timeframe: [id number] Location: None Selected Ordered By: Dr. Cody Holley Referrals / Follow Up: Physical,Therapy [Other] - 09/09/23 2:00 pm Aurelia Puga NP-C [Primary Care Provider] - Within 1 Week (BP check within 1 week) Campbell Cloud PA-C [Med Staff - [facility] Practice Prof] - 09/19/23 2:30 pm Disposition Disposition (needs filled in before D/C Order can be placed): Home, Self Care
[2023-09-05 12:33] VITALS: BP 100/49; BP 104/62; BP 99/55; PULSE 59; PULSE 60; PULSE 69
--- NOTE | 2023-09-05 13:48 | CASEMGMT ---
ALAN PLASCENCIA Assessment: Face to Face with pt for initial transition planning/care coordination assessment. ALAN PLASCENCIA introduced self and role at [facility], pt voices understanding and consents to assessment. Pt is A&O x4 and answers all questions appropriately at this time. Pt lying in bed in no distress. Care providers, pharmacy, and demographics verified/updated. Admitting Dx: anterior right total hip arthroplasty PCP:Aurelia Puga Specialists:elaine Holley Pharmacy: [facility] Retail Insurance: [facility] Package Plan Prescription Benefit: no LNOK: Trae Blackburn, Living Arrangements: Pt lives with in a single story home with 1 step to enter. Pt reports she is I in ADL's and can assist at home until she is independent again. Pt denies concerns at home. Transportation: Pt hires transportation. She states she is in touch with the hospital van for transportation home. If they cannot transport home pt children will hire drivers. DME:mike MARTINEZ HHC/SNF: Denies hx of Pt states no concerns with going home at time of dc. Pt has outpt therapy set up at [facility] on September 08. Pt states no further concerns/needs. CM to follow. Advised pt to ask CM if any further question/concerns/needs arise, voices understanding. Pt Goal: Home with outpt therapy set up Plan: Home with outpt therapy set up Ricky PHILLIPS CM
--- NOTE | 2023-09-05 16:20 | PN.HOSP_ITS ---
Subjective Subjective Mrs. Blackburn is a 67-year-old [facility] white female who presents emergency department at [facility] on 09/04/2023 for elective right total hip arthroplasty due to severe osteoarthritis. She had been having pain for several years which was limiting her activities of daily living. Today she has been having some lower blood pressures and some orthostasis type symptoms. The initial plan was to discharge her home however with her positive orthostatic symptoms decided to admit her to the hospital for further evaluation. She is still somewhat orthostatic today. Her lisinopril was been on hold. We did give her a liter of fluid and she states she is feeling better but not quite at baseline. Objective Data Objective Data Vital Signs: Vital Signs Temp Pulse Resp BP Pulse Ox O2 Del Method O2 Flow Rate 97.5 F L 59 L 16 100/49 L 96 Room Air 2 09/05/23 08:30 09/05/23 12:33 09/05/23 08:30 09/05/23 12:33 09/05/23 08:30 09/05/23 08:36 09/04/23 21:55 Oxygen Flow Rate (L/min) 2 Oxygen Delivery Method Room Air Weight: 98 kg Body Mass Index (BMI) 39.5 Intake & Output: Intake and Output for Last 24 Hours 09/03/23 09/04/23 09/05/23 23:59 23:59 23:59 Intake Total 2789.5 / 2789.5 2992.5 / 2992.5 Output Total 1075 / 1075 1200 / 1200 Balance 1714.5 / 1714.5 1792.5 / 1792.5 Lab / Micro Data 09/05/23 06:13 09/05/23 06:13 Labs: Laboratory Results - last 24 hr 09/05/23 06:13: WBC 12.3 H, RBC 3.52 L, Hgb 10.3 L, Hct 33.0 L, MCV 93.8, MCH 29.3, MCHC 31.2 L, RDW Std Deviation 47.4 H, RDW Coeff of Arleth 13.9, Plt Count 189, MPV 10.9, Sodium 143, Potassium 4.6, Chloride 113 H, Carbon Dioxide 27.0, Anion Gap 3 L, BUN 10, Creatinine 0.69, Estim Creat Clear Calc 75.63, Est GFR (MDRD) Af Amer 110, Est GFR (MDRD) Non-Af 91, BUN/Creatinine Ratio 14.6, Glucose 103, Calcium 8.4 L Micro: Microbiology 08/08/23 12:45 Swab (Method) Nasal Screen MRSA/MSSA - Final Physical Exam Const alert, oriented x3, no apparent distress and well nourished Constitutional Narrative: Obese, obvious, white female, walking back to back from the bathroom, appears comfortable, does not appear toxic HEENT head/scalp atraumatic, moist oral mucous membranes and oropharynx normal Head and Scalp: normocephalic Resp normal respiratory effort, no retractions, no use of accessory muscles and clear to auscultation bilaterally Cardio regular rate, regular rhythm, S1 normal heart sound, S2 normal heart sound, no murmurs, no rub, no gallops and no clicks GI normal to inspection, nondistended, normoactive bowel sounds, soft to palpation and non-tender Extremity no clubbing, cyanosis or edema Extremity Narrative: Pedal pulses are 2+ Neuro oriented x3, moves all extremities and no focal motor deficits Neuro Narrative: Ambulating well with a wheeled walker Speech: speech normal Psych affect normal Psych Narrative: Very pleasant, interacts appropriately Assessment & Plan Assessment/Plan (1) S/P total right hip arthroplasty: (2) Postoperative hypotension: PLAN: Plan Right hip osteoarthritis -Postop day 1 right anterior total hip arthroplasty -Pain management per primary service -PT/OT -Weightbearing as tolerated -Continue bowel regimen -Continue incentive spirometer Postoperative hypotension -Slowly improving but still low -Continue to hold home antihypertensives and would recommend holding tomorrow -Symptoms are resolving -Continue to monitor and if symptoms are resolved tomorrow should be able to go home Hypertension -Antihypertensives on hold due to the above -As needed hydralazine is available for markedly elevated blood pressures GERD -Continue home famotidine Obesity -BMI 39.5 -Recommend weight loss -Complicates treatment, prognosis, outcomes DVT prophylaxis -Per primary service Charges/Coding Visit Charges Inpatient E&M: 86373 Subs Hosp L2
[2023-09-05 18:04] VITALS: BP 96/42; PULSE 76; RESP 16; TEMP 36.8; O2SAT 97
[2023-09-05] MEDS: Ketorolac 15 MG/ML Vial IV (18:20)
[2023-09-05 20:27] VITALS: BP 98/57; PULSE 73; RESP 16; TEMP 36.9; O2SAT 98
[2023-09-05] MEDS: Doxycycline 100 MG CAPSULE PO (21:25)
[2023-09-05] MEDS: Ondansetron 4 MG/2 ML Vial IV (23:12)
[2023-09-05] MEDS: oxyCODONE 5 MG Tablet PO (23:12)
[2023-09-06] MEDS: oxyCODONE 5 MG Tablet PO (03:34)
[2023-09-06 03:35] VITALS: BP 103/58; PULSE 80; RESP 16; TEMP 37.3; O2SAT 96
--- NOTE | 2023-09-06 06:42 | PN.ORTHO_ITS ---
Subjective Subjective The patient was sitting in bed sleeping upon examination. Patient denies any chest pain, shortness of breath, dizziness, lightheadedness, nausea or vomiting, or calf pain. Pain is controlled on medications. No adverse overnight events. Patient states the dizziness has resolved. She has been tolerating therapy. Patient did stay an additional night as medicine wanted to continue to observe her due to the low blood pressure and dizziness. We are currently holding her blood pressure medication and will continue to hold this for a total of 4 days postoperatively. Patient also reports having a bowel movement in the hospital. Objective Data Objective Data Vital Signs: Vital Signs Temp Pulse Resp BP Pulse Ox O2 Del Method O2 Flow Rate 99.2 F H 80 16 103/58 L 96 Room Air 2 09/06/23 03:35 09/06/23 03:35 09/06/23 03:35 09/06/23 03:35 09/06/23 03:35 09/06/23 03:35 09/04/23 21:55 Oxygen Flow Rate (L/min) 2 Oxygen Delivery Method Room Air Weight: 98 kg Body Mass Index (BMI) 39.5 Intake & Output: Intake and Output for Last 24 Hours 09/04/23 09/05/23 09/06/23 23:59 23:59 23:59 Intake Total 2789.5 / 2789.5 3492.5 / 3492.5 500 / 500 Output Total 1075 / 1075 1200 / 1200 Balance 1714.5 / 1714.5 2292.5 / 2292.5 500 / 500 Lab / Micro Data 09/05/23 06:13 09/05/23 06:13 Labs: Laboratory Results - last 24 hr 09/05/23 06:13: WBC 12.3 H, RBC 3.52 L, Hgb 10.3 L, Hct 33.0 L, MCV 93.8, MCH 29.3, MCHC 31.2 L, RDW Std Deviation 47.4 H, RDW Coeff of Arleth 13.9, Plt Count 189, MPV 10.9, Sodium 143, Potassium 4.6, Chloride 113 H, Carbon Dioxide 27.0, Anion Gap 3 L, BUN 10, Creatinine 0.69, Estim Creat Clear Calc 75.63, Est GFR (MDRD) Af Amer 110, Est GFR (MDRD) Non-Af 91, BUN/Creatinine Ratio 14.6, Glucose 103, Calcium 8.4 L Micro: Microbiology 08/08/23 12:45 Swab (Method) Nasal Screen MRSA/MSSA - Final Physical Exam Narrative Vital signs stable and afebrile. Patient has continued to have some soft blood pressure readings with the last reading 103/58. She denies any dizziness or lightheadedness today SCDs and TON hose are in place bilaterally Right hip is soft and supple Patient is able to plantarflex and dorsiflex actively. Sensation is intact to light touch to saphenous, sural, superficial and deep peroneal, and tibial distribution. Dressing is clean dry and intact. Negative Homans bilaterally, negative signs and symptoms of DVT. Const alert, oriented x3 and no apparent distress Assessment & Plan Assessment/Plan (1) S/P total right hip arthroplasty: PLAN: 1. S/P right direct anterior total hip arthroplasty POD #2 2. Continue Pain Medications: Tylenol, meloxicam, oxycodone. Do not take any other nonsteroidal anti-inflammatories while using meloxicam/Mobic. 3. DVT Prophylaxis: Take 81 mg aspirin twice daily for 4 weeks postoperatively for DVT prophylaxis. Patient denies past history of DVT or pulmonary embolism. 4. PT/OT: Weightbearing as tolerated with walker 5. H & H: Yesterday lab work was 10.3/33.0, we are currently awaiting new lab work today. Patient has had some slight improvement in the blood pressure but still remains slightly low. The dizziness has resolved. Preoperative lab work on August 08, 2023 patient hemoglobin was 13.6. There was estimated blood loss 600 mL. I did discuss with the patient that if her hemoglobin drops below [address] her on ferrous sulfate and folic acid. I will need to review the labs outside of the hospital in our office. I did explain to her that we will call these in after review of her labs if the hemoglobin does drop below 10. She did voiced understanding. 6. Reactive leukocytosis: Awaiting lab work today. Yesterday was 12.3. Patient did receive Decadron intraoperatively. No clinical signs of infection. 7. Currently on doxycycline for 2 weeks postoperatively due to elevated BMI greater than 40.0. I discussed with the patient potential side effects of doxycycline including sensitivity to the sunlight and increased risk of skin b urn. Recommend patient take appropriate precautions. Also recommend patient to take probiotic while on the antibiotic. Patient voiced understanding agreement. 8. Postoperative dressing: I did discuss with the patient in detail about removal of the dressing again today. Patient does have a large pannus that I did inform her she should be using an ABD, 4 x 4, or clean washcloth to place in between the medial portion of the incision and skin pannus. I did explain to her that if she does not protect this area this can cause incision irritation and breakdown. She should keep this clean and dry. Do this for the next 4 weeks. She was also instructed not to place any salves, ointments, Neosporin or topicals over the incision for 6 weeks postoperatively. Only use gentle soap and water. 9. Continue postoperative medical management per medicine: It was recommended by medicine for patient to stay an additional night due to the postoperative hypotension and dizziness. The dizziness has resolved today. Blood pressure readings are slightly improved. At this time will reassess patient this morning and if cleared by medicine okay for discharge home. Medicine also continues to recommend holding the blood pressure medication for 4 days postoperatively. I did recommend patient maintain a log of her blood pressure readings at home. If she has any concerns about starting her blood pressure medication I would have her reach out to her primary care provider for further instructions. She should not take the blood pressure medication if her systolic pressure is less than 100. She did voice understanding. 10. Encouraged Incentive Spirometry 11. Postoperative constipation: Patient has had a bowel movement in the hospital. She will only use the stool softener on an as-needed basis 12. Disposition: Patient is orthopedically stable, will need to reassess patient today with her blood pressure and how she tolerates therapy. If she is cleared by medicine I am okay with patient being discharged home today. Her dizziness has resolved. She has continued to have some soft blood pressure readings but slightly improved. Patient was treated with IV fluids yesterday. Patient's prescriptions were E scribed to [facility] outpatient pharmacy yesterday. She does have outpatient physical therapy established. She will follow-up per postoperative instructions. Upon discharge she will contact her office with any concerns or questions. I will reach back to the hospital and nursing about appropriate discharge once she has been evaluated by medicine today. I have reviewed the [place] Automated Rx Reporting System (OARRS) report for this patient for refill pattern and other prescriber involvement as part of the appropriate surveillance for the provision of acute and chronic controlled medications. The report was requested and reviewed on the date of this entry and was considered in the prescribing process. This dictation was created using voice recognition software. Phonetic and/or grammatical errors may exist.
[2023-09-06] MEDS: Acetaminophen 500 MG Tablet 1000 MG PO ×2 (06:43→13:57)
[2023-09-06 07:17] LABS: Absolute Lymphocyte Count 1.47 X10^3/uL (0.83-4.51); Absolute Neutrophil Count 9.6 X10^3/uL (2.0-7.7); Basophil# 0.04 X10^3/uL; Basophil% 0.3 % (0-1); Eosinophil# 0.12 X10^3/uL; Hematocrit 34.9 % (37-47); Hemoglobin 10.9 g/dL (12.0-15.0); Lymphocyte # 1.47 X10^3/ul (0.83-4.51); Lymphocyte % 12.1 % (19-41); Mean Corp Hgb Conc 31.2 g/dL (32-36); Mean Corpuscular Hgb 29.1 pg (27.0-32.0); Mean Corpuscular Volume 93.1 fL (81-99); Mean Platelet Vol. 10.6 fl (6.2-12.0); Monocyte# 0.89 X10^3/uL; Monocyte% 7.3 % (0-10); NRBC Flagged by Analyzer 0 % (0-5); Neutrophil % 78.8 % (47-70); Platelet Count 205 K/mm3 (150-450); RBC Distribution Width CV 14.2 % (11.6-14.6); Red Blood Count 3.75 M/mm3 (4.2-5.4); White Blood Count 12.2 K/mm3 (4.4-11.0)
[2023-09-06 07:38] LABS: Anion Gap 3 (5-15); BUN 16 mg/dL (7-18); BUN/Creat Ratio 19.6 RATIO (10-20); Calcium,Total 8.4 mg/dL (8.5-10.1); Chloride 112 mmol/L (98-107); Creatinine, Serum 0.82 mg/dL (0.55-1.02); EST Glomerular Filtration Rate 75 mL/min (>60); Est Glom Filt Rate - Afr Amer 90 mL/min (>60); Estimated Creatinine Clearance 73.79 ml/min; Glucose 109 mg/dL (74-106); Potassium 4.1 mmol/L (3.5-5.1); Sodium Level 140 mmol/L (136-145)
[2023-09-06 09:55] VITALS: BP 88/58; PULSE 80; RESP 18; TEMP 36.6; O2SAT 98
[2023-09-06] MEDS: Cholecalciferol (Vit D3) 125 MCG CAPSULE (5,000 UNITS) PO (09:59)
[2023-09-06] MEDS: Lactobacillis Acidophilus 1 CAP PO (10:00)
[2023-09-06] MEDS: Famotidine 20 MG Tablet PO (10:00)
[2023-09-06] MEDS: Doxycycline 100 MG CAPSULE PO (10:00)
[2023-09-06] MEDS: Meloxicam 7.5 MG Tablet PO (10:00)
[2023-09-06] MEDS: Aspirin 81 MG TAB.CHEW PO (10:00)
[2023-09-06 13:53] VITALS: BP 107/67; PULSE 92; RESP 18; TEMP 36.9; O2SAT 95
--- NOTE | 2023-09-06 13:53 | PCM.PN.HOSP ---
Reason for Visit Reason for Visit: Right total hip arthroplasty Subjective Subjective Patient reports very minimal lightheadedness with standing up. No TON hose on at this time. Pressures remain borderline however she is fairly asymptomatic and has had no signs of syncope or presyncope. Patient indicates she does feel comfortable going home. I did discuss with her the need to hold her lisinopril until she can follow-up with her primary care nurse practitioner, Aurelia Puga. Were hoping for follow-up next week. She is also to wear lower extremity compression hose and minimally use her opiates. This is likely related to anesthesia and postoperative pain management. Objective Data Objective Data Vital Signs: Vital Signs Temp Pulse Resp BP Pulse Ox O2 Del Method O2 Flow Rate 97.9 F 80 18 88/58 L 98 Room Air 2 09/06/23 09:55 09/06/23 09:55 09/06/23 09:55 09/06/23 09:55 09/06/23 09:55 09/06/23 09:56 09/04/23 21:55 Oxygen Flow Rate (L/min) 2 Oxygen Delivery Method Room Air Weight: 98 kg Body Mass Index (BMI) 39.5 Intake & Output: Intake and Output for Last 24 Hours 09/04/23 09/05/23 09/06/23 23:59 23:59 23:59 Intake Total 2789.5 / 2789.5 3492.5 / 3492.5 800 / 800 Output Total 1075 / 1075 1200 / 1200 Balance 1714.5 / 1714.5 2292.5 / 2292.5 800 / 800 Lab / Micro Data 09/06/23 06:50 09/06/23 06:50 Labs: Laboratory Results - last 24 hr 09/06/23 06:50: WBC 12.2 H, RBC 3.75 L, Hgb 10.9 L, Hct 34.9 L, MCV 93.1, MCH 29.1, MCHC 31.2 L, RDW Std Deviation 48.0 H, RDW Coeff of Arleth 14.2, Plt Count 205, MPV 10.6, Immature Gran % (Auto) 0.500, Neut % (Auto) 78.8 H, Lymph % (Auto) 12.1 L, [place] % (Auto) 7.3, Eos % (Auto) 1.0, Baso % (Auto) 0.3, Absolute Neuts (auto) 9.6 H, Absolute Lymphs (auto) 1.47, Nucleated RBC % 0, Sodium 140, Potassium 4.1, Chloride 112 H, Carbon Dioxide 25.0, Anion Gap 3 L, BUN 16, Creatinine 0.82, Estim Creat Clear Calc 73.79, Est GFR (MDRD) Af Amer 90, Est GFR (MDRD) Non-Af 75, BUN/Creatinine Ratio 19.6, Glucose 109 H, Calcium 8.4 L Micro: Microbiology 08/08/23 12:45 Swab (Method) Nasal Screen MRSA/MSSA - Final Physical Exam Const alert, oriented x3, no apparent distress and well nourished Constitutional Narrative: Obese, obvious, white female, sitting up in a chair at the bedside, nursing at bedside, at bedside, appears comfortable, does not appear toxic General Appearance: cooperative HEENT normocephalic, head/scalp atraumatic, hearing grossly normal bilaterally and moist oral mucous membranes HEENT Narrative: Mallampati 2-3, no thrush Resp normal respiratory effort, no retractions, no use of accessory muscles and clear to auscultation bilaterally Cardio regular rate, regular rhythm, S1 normal heart sound, S2 normal heart sound, no murmurs, no rub, no gallops and no clicks GI normal to inspection, nondistended, normoactive bowel sounds, soft to palpation and non-tender Extremity no clubbing, cyanosis or edema Extremity Narrative: Pedal pulses are 2+ Neuro oriented x3, moves all extremities and no focal motor deficits Speech: speech normal Psych affect normal Psych Narrative: Very pleasant, interacts appropriately Assessment & Plan Assessment/Plan (1) S/P total right hip arthroplasty: (2) Postoperative hypotension: PLAN: Plan Right hip osteoarthritis -Postop day 2 right anterior total hip arthroplasty -Pain management per primary service -PT/OT -Weightbearing as tolerated -Continue bowel regimen -Continue incentive spirometer Postoperative hypotension -Borderline but fairly asymptomatic -continue to hold antihypertensives until she can follow-up with her primary care physician -Highly suspect related to anesthesia and postoperative pain medication -Okay for discharge home from medical standpoint with outpatient follow-up Hypertension -Continue to hold lisinopril at discharge until she can follow-up as an outpatient -As needed hydralazine is available for markedly elevated blood pressures GERD -Continue home famotidine Obesity -BMI 39.5 -Recommend weight loss -Complicates treatment, prognosis, outcomes DVT prophylaxis -Per primary service Disposition: -Okay for discharge home. Patient relatively asymptomatic. Most recent blood pressure 107/67. Plan is to hold lisinopril and follow-up with primary care physician next week to reassess blood pressure. Discussed with radiation hourJACQUELINE Charges/Coding Visit Charges Inpatient E&M: 20562 Subs Hosp L2
--- NOTE | 2023-09-06 13:54 | CASEMGMT ---
Received tc from hospitalist requesting a PCP appt within a week for pt. TC to [facility], pt has an appt on September 09 at 1030. Noted this was already on dc instructions. Pt to dc today.
== END 2023-09-06 14:27 | disposition home or self-care (01) ==
LOC: MS3 15:02 → SDC 09-05 11:22 → MS3 09-05 11:22
PROVIDERS: Anesthesiology; Internal Medicine; Physician Assistant Surgical; Admitting Provider Specialist; PCP Nurse Practitioner Family; Referring Provider Specialist; Visit Provider Specialist
PROC: (CPT 27284; principal; 2023-09-04 09:35)
DX: M16.11 Unilateral primary osteoarthritis, right hip (principal); E66.01 Morbid (severe) obesity due to excess calories; Z68.41 Body mass index [BMI] 40.0-44.9, adult; I10 Essential (primary) hypertension; I95.81 Postprocedural hypotension; E53.8 Deficiency of other specified B group vitamins; F32.A Depression, unspecified; E55.9 Vitamin D deficiency, unspecified; Z79.899 Other long term (current) drug therapy; K21.9 Gastro-esophageal reflux disease without esophagitis
CPT/HCPCS: 27130; 01214; 36415; 73501; 73502; 76000; 80048; 82040; 82962; 83735; 85025; 85027; 87081; 88305; 88311; 93005; 94668; 96361; 96365; 96366; 96375; 96376; 97162; 97166; 97530; 97535; 99221; 99252; C1776; J7030; J7120; A4216; G0378; G0463; J2405; J3475

== ENCOUNTER 2023-10-07 09:30 | Outpatient (RCR) | payer SELFPAY ==
--- NOTE | 2023-09-09 11:30 | HP.PTEVAL_ITS ---
Patient's Visit Information Visit Information Visit Information: BOBBY OCHOA is a 67 year old F referred to Physical Therapy by Dr. Cody Holley MD with a diagnosis of Anterior Right THR September 04, 2023. Date of Evaluation: 09/09/23 Physical Therapist: Linda Olivo DPT Visit Plan Frequency: 2x /Week Duration: 4 Weeks Plan: Anterior Approach Right THR 09/04/23 Focus on LE and core strength/stabilization with functional mobility Subjective Subjective: Right THR Anterior Approach by Dr. Holley on September 04, 2023 at [facility]. She stayed 2 nights due to low blood pressure. She lives in a single story home with her with a single step to enter- she has no problems getting in/out. She is using a FWW. She was fully I prior to surgery- no AD prior to surgery. Goals: get back to all her normal activities- she does her own cooking. Pain at its worst is a 7/10 more groin pain- does radiate down to the mid calf. The worst part was in the thigh area. Agg: movement, walking. Eases: sitting. Best: 1/10. Today she is a 4/10. She likes to sit in her recliner. Sleep: disturbed- she has been sleeping in both the chair and her bed. She does have some back pain that comes and goes. She has had back surgery in 2017 and both of her knees done. She feels safe with the walker no falls. No N/T in the toes. No loss or change in bowel or bladder. She is taking pain medication every 4 hours at this time. She is doing the exercises from the hospital at home with help from her . PMHx/Meds in chart. Objective Objective: Posture: forward head, rounded shoulders Gait: step to gait pattern with FWW HR/TR: able with UE A on FWW SLS: weight shift but unable to SLS Observation: no s/s of infection- took bandage off today ROM: Knee: WFL, Hip: Flexion: 90 degrees Extn: neutral Strength: Knee Extn: 20 Flexion: 17 Hip: Abd: 15 Add: 11 Extn: 15 Flexion: 5, Ankle: 5/5, SLR: max A Flex: HS: severe Balance/Special Test Scores TUG Test Time Seconds: 40 WOMAC Total Score: 48 WOMAC Percentatge: 50.0000 Goals Goal 1:: Patient will report participation in home exercise program activities a minimum of 5 days per week, as adjunct to skilled physical therapy intervention in preparation for independent home management upon discharge. Goal Time Frame: 4-6 Weeks Goal 2:: Patient will ambulate >300 feet with a normalized gait pattern and LRD Goal Time Frame: 4-6 Weeks Goal 3:: Patient will asc/desc 8 stairs with 1 HR reciprocally Goal Time Frame: 4-6 Weeks Goal 4:: Patient will perform the TUG under 15 sec with LRD Goal Time Frame: 4-6 Weeks Goal 5:: Patient will report 80% improvement Goal Time Frame: 4-6 Weeks Rehabilitation Potential Physical Therapy Diagnosis: Patient presents s/p R THR- she has decreased LE and core strength/stabilization, proprioception flex, muscular endurance leading to abnormal gait and decreased ability to perform ADL's. Anticipated Interventions Text: Thank you for the opportunity to evaluate your patient. For Medicare and Medicare HMO plans, please review the plan of care and approve it. It will need to be FAXED BACK to us at [phone] for Medicare purposes. For Medicare only, by signing this I certify the plan of care. Please let me know if there are questions or concerns regarding this plan of care. Physician Signature: Date:
--- NOTE | 2023-11-27 08:56 | HP.PT.NRP ---
Patient Information Patient Information: BOBBY OCHOA was seen in my office for initial evaluation on 09/09/23. The following Plan of Care was established for this patient: POC Established Initial Frequency: 2x /Week Initial Duration: 4 Weeks Last Seen Last Seen: This patient was last seen in our office . Pertinent comments regarding their Physical therapy will appear below: Patient has not attended PT in over 30 days- is appropriate to be d/c from PT and continue home exercise program. Follow up with MD as needed. At this point I will be discontinuing this patient from physical therapy. I would be happy to see this patient again in the future if found appropriate by the physician. Thank you! Linda Olivo, DPT Balance/Gait/Functional tests Balance/Special Test Scores Lower Extremity Functional Score: 57 TUG Test Time Seconds: 40 Tug Test: >30sec.=impaired mobility WOMAC Total Score: 48 WOMAC Percentage: 50.0000
== END 2023-10-07 19:00 | disposition home or self-care (01) ==
LOC: PT 09:30
PROVIDERS: PCP Nurse Practitioner Family; Visit Provider Specialist
DX: Z96.641 Presence of right artificial hip joint (principal); Z47.1 Aftercare following joint replacement surgery
CPT/HCPCS: 97110; 97162

== ENCOUNTER → 2023-11-05 | Outpatient (CLI) | payer SELFPAY ==
[2023-11-05 11:07] LABS: Absolute Lymphocyte Count 1.73 X10^3/uL (0.83-4.51); Absolute Neutrophil Count 4.1 X10^3/uL (2.0-7.7); Basophil# 0.04 X10^3/uL; Basophil% 0.6 % (0-1); Eosinophil# 0.17 X10^3/uL; Eosinophils% 2.6 % (0-5); Hematocrit 40.3 % (37-47); Hemoglobin 13.1 g/dL (12.0-15.0); Lymphocyte # 1.73 X10^3/ul (0.83-4.51); Lymphocyte % 26.4 % (19-41); Mean Corp Hgb Conc 32.5 g/dL (32-36); Mean Corpuscular Hgb 29.5 pg (27.0-32.0); Mean Corpuscular Volume 90.8 fL (81-99); Mean Platelet Vol. 9.8 fl (6.2-12.0); Monocyte# 0.45 X10^3/uL; Monocyte% 6.9 % (0-10); NRBC Flagged by Analyzer 0 % (0-5); Neutrophil # 4.14 X10^3/uL (2.7-7.7); Neutrophil % 63.2 % (47-70); Platelet Count 274 K/mm3 (150-450); RBC Distribution Width CV 13.7 % (11.6-14.6); RBC Distribution Width SD 45.9 fl (35.1-43.9); Red Blood Count 4.44 M/mm3 (4.2-5.4); White Blood Count 6.6 K/mm3 (4.4-11.0)
[2023-11-05 11:34] LABS: Vitamin D,25 Hydroxy 56.4 ng/mL
[2023-11-05 11:41] LABS: ALB/GLOB Ratio 0.9 RATIO (0.9-2.4); AST(SGOT) 18 U/L (15-37); Alanine Aminotransfer ALT/SGPT 19 U/L (13-56); Albumin, Serum 3.6 g/dL (3.2-5.0); Alkaline Phosphatase 108 U/L (45-117); Anion Gap 4 (5-15); BUN 18 mg/dL (7-18); BUN/Creat Ratio 20.3 RATIO (10-20); Calcium,Total 9.6 mg/dL (8.5-10.1); Chloride 107 mmol/L (98-107); Cholesterol 198 mg/dL (200); Creatinine, Serum 0.88 mg/dL (0.55-1.02); EST Glomerular Filtration Rate 68 mL/min (>60); Est Glom Filt Rate - Afr Amer 82 mL/min (>60); Glucose 85 mg/dL (74-106); High Density Lipoprotein 60 mg/dL; Potassium 4.2 mmol/L (3.5-5.1); Protein, Total 7.6 g/dL (6.4-8.2); Sodium Level 140 mmol/L (136-145); Thyroid Stim Hormone (TSH) 3.04 uIU/mL (0.358-3.74); Triglycerides 124 mg/dL; Very Low Density Lipoprotein 25 mg/dL (5-40)
== END | disposition home or self-care (01) ==
PROVIDERS: PCP Nurse Practitioner Family; Referring Provider Nurse Practitioner Family; Visit Provider Nurse Practitioner Family
DX: I10 Essential (primary) hypertension (principal); E78.5 Hyperlipidemia, unspecified; E55.9 Vitamin D deficiency, unspecified
CPT/HCPCS: 36415; 80053; 80061; 82306; 84443; 85025

== ENCOUNTER 2024-03-28 19:46 | Emergency (ER) | payer OTHER, SELFPAY ==
[2024-03-28 19:47] VITALS: BP 172/92; PULSE 60; RESP 16; TEMP 36.4; O2SAT 98; BMI 38.5
--- NOTE | 2024-03-28 20:27 | CT_ITS ---
INDICATION: abdominal pain. Constipation EXAMINATION: CT ABDOMEN AND PELVIS WITH CONTRAST - CT Abdomen And Pelvis W/ Contrast Injection TECHNIQUE: Helically acquired images were obtained of the abdomen and pelvis following IV contrast. A radiation dose optimization technique was used for this scan. IV Contrast dosage and agent: 100 cc Isovue-370 Oral contrast: None. COMPARISON: None. FINDINGS: LOWER CHEST: Lung bases are clear. No cardiomegaly or pericardial effusion. LIVER: Homogeneous. No focal mass. GALLBLADDER AND BILIARY TREE: Gallbladder not seen. No intra- or extrahepatic biliary ductal dilation. PANCREAS: No focal cystic or solid mass. SPLEEN: Normal size, 12 mm cyst. ADRENAL GLANDS: No nodules. KIDNEYS AND URETERS: Left parapelvic cysts. No hydronephrosis. PERITONEUM: No ascites or free air. BOWEL: Normal appendix. No stomach or bowel distension. No focal inflammatory change. Increased colonic fecal burden. LYMPH NODES: No enlarged mesenteric or retroperitoneal lymph nodes. VESSELS: Aorta is non-dilated. URINARY BLADDER: Unremarkable. REPRODUCTIVE ORGANS: Uterus absent. ABDOMINAL WALL: No discrete abdominal or pelvic wall hernia. BONES: No acute or aggressive abnormality. Right hip prosthesis in place. Posterior lumbar fusion hardware present L3-S1. CT/Abdomen/Pelvis W IV Cont ONLY IMPRESSION: No acute findings in the abdomen or pelvis. Colonic fecal burden consistent with clinical constipation. Electronically Signed: Delroy Thomas MD at 22:15 EST ,
[2024-03-28 20:58] LABS: Absolute Lymphocyte Count 1.93 X10^3/uL (0.83-4.51); Basophil# 0.04 X10^3/uL; Basophil% 0.5 % (0-1); Eosinophil# 0.12 X10^3/uL; Eosinophils% 1.4 % (0-5); Hematocrit 41.2 % (37-47); Hemoglobin 13.7 g/dL (12.0-15.0); Lymphocyte # 1.93 X10^3/ul (0.83-4.51); Lymphocyte % 22.3 % (19-41); Mean Corp Hgb Conc 33.3 g/dL (32-36); Mean Corpuscular Hgb 29.7 pg (27.0-32.0); Mean Corpuscular Volume 89.2 fL (81-99); Mean Platelet Vol. 9.5 fl (6.2-12.0); Monocyte# 0.59 X10^3/uL; Monocyte% 6.8 % (0-10); NRBC Flagged by Analyzer 0 % (0-5); Neutrophil # 5.95 X10^3/uL (2.7-7.7); Neutrophil % 68.7 % (47-70); Platelet Count 257 K/mm3 (150-450); RBC Distribution Width CV 13.5 % (11.6-14.6); RBC Distribution Width SD 44.5 fl (35.1-43.9); Red Blood Count 4.62 M/mm3 (4.2-5.4); White Blood Count 8.7 K/mm3 (4.4-11.0)
--- NOTE | 2024-03-28 21:01 | EDS_ITS ---
HPI <JACQUELINE Junior - Last Filed: 03/28/24 22:04> HPI - GI History of Present Illness Chief Complaint: Constipation Narrative Narrative: Patient presenting today due to constipation. She reports a history of IBS but predominantly has looser stools. However, over the last 3 weeks her stools have been, hard and dry. Over the past week, she has been more constipated than usual. She took Dulcolax on Saturday, she did have a loose bowel movement , she then took 2 more Dulcolax last night and 3 today and has not had a bowel movement. She reports intermittent lower abdominal cramping. She did have chills last night. She denies any history of bowel obstruction or previous abdominal surgeries. She is passing gas. She reports occasional nausea. She denies fevers, vomiting, and urinary symptoms. [facility] <JACQEULINE Junior - Last Filed: 03/28/24 22:04> [facility] Medical History Hypertension Wears glasses Wears dentures Depression Anxiety Migraine headache Restless legs History of IBS Heartburn Non-smoker Leg cramps Home Medications ?Medication ?Instructions ?Recorded ?Last Taken ?Type calcium 500 mg 2 tab PO DAILY 08/08/23 09/02/23 History (carb,gluconate)-magnesium 250 mg (gluc,oxide) tablet (Calcium Magnesium) cartilage 40 mg-collagen II 10 3 tab PO DAILY 08/08/23 09/02/23 History mg-boron 5 mg-hyaluronate 3.3 mg tablet (Zindigo) cholecalciferol (vitamin D3) 125 125 mcg PO DAILY PRN SUPPLEMENT 08/08/23 09/02/23 History mcg (5,000 unit) tablet (Vitamin D3) lactobacillus combo no.11 15 1 cap PO DAILY 08/08/23 09/02/23 History billion cell sprinkle capsule (Probiotic) acetaminophen 500 mg tablet 1,000 mg (2 x 500 mg) PO Q8 #0 tabs 09/05/23 Unknown Rx meloxicam 7.5 mg tablet 7.5 mg PO BIDCM PRN pain 03/28/24 Unknown History polyethylene glycol 3350 17 17 g PO DAILY #238 grams 03/28/24 Unknown Rx gram/dose oral powder (Miralax) Allergy/AdvReac Type Severity Reaction Status Date / Time No Known Allergies Allergy Verified 03/28/24 19:51 Surgical History History of (~1988) History of total left knee replacement (~2018) History of total right knee replacement (~2018) History of back surgery (~2016) History of hysterectomy (~2003) History of hernia repair (~2007) History of cholecystectomy (~1980) Social History Smoking Status: Never smoker ROS <JACQUELINE Junior - Last Filed: 03/28/24 22:04> ROS ED Constitutional Constitutional ED: Reports chills; Denies fever(s) Cardiovascular Cardiovascular: Denies chest pain Respiratory/Chest Respiratory/Chest: Denies dyspnea, wheezing or other Gastrointestinal Gastrointestinal: Reports abdominal pain, constipation and nausea; Denies vomiting Genitourinary Genitourinary ED: Reports other Details: Patient denies urinary retention ; Denies dysuria, hematuria or urinary urgency Musculoskeletal Musculoskeletal: Denies arthralgias or myalgias Integumentary Denies rash Neurologic Neurologic: Denies weakness EXAM <JACQUELINE Junior - Last Filed: 03/28/24 22:04> Physical Exam Const Vital Signs: 03/28/24 19:47 03/28/24 22:47 Temperature 97.6 F L 97.9 F Temperature Source Oral Pulse Rate 60 67 Respiratory Rate 16 18 Blood Pressure 172/92 H 147/95 H Blood Pressure Mean 118 112 Pulse Ox 98 97 Oxygen Delivery Method Room Air Positive well nourished, well developed and no apparent distress General Appearance ED: well developed HEENT Reports normocephalic and head/scalp atraumatic Mouth ED: Yes moist mucous membranes normal Eyes PERRL and EOMs intact bilaterally Neck full ROM and supple Chest Wall inspection of chest normal Resp normal respiratory effort and clear to auscultation bilaterally Cardio regular rate and regular rhythm GI soft to palpation, non-tender, non-distended and no masses GI Narrative: Rectal exam: Normal sphincter tone, no fecal impaction. Back/Spine normal ROM and normal to inspection Extremity normal to inspection and full ROM Neuro oriented x3, CN's II-XII intact bilaterally, moves all extremities, no focal motor deficits and no sensory deficits noted Sensorium / Orientation: awake and alert Psych mental status grossly normal and thought process normal Skin no rashes or lesions noted and no wounds <Dr. Duane Velázquez DO - Last Filed: 03/28/24 23:43> Physical Exam Const Vital Signs: 03/28/24 19:47 03/28/24 22:47 Temperature 97.6 F L 97.9 F Temperature Source Oral Pulse Rate 60 67 Respiratory Rate 16 18 Blood Pressure 172/92 H 147/95 H Blood Pressure Mean 118 112 Pulse Ox 98 97 Oxygen Delivery Method Room Air MDM <JACQUELINE Junior - Last Filed: 03/28/24 22:04> [facility] Narrative Medical decision making narrative: Patient presenting today with concerns for constipation and lower abdominal cramping. She has been constipated over the past 3 weeks but it worsened last week. Her last bowel movement was . She is passing gas. Rectal exam was performed, no fecal impaction. Given her lower abdominal cramping, labs and CT scan of the abdomen and pelvis will be obtained to assess for bowel obstruction, mass, and other etiology. CT scan pending. Workup handed over to the attending. Lab Data Attestation: I reviewed the patient's lab results. Labs: Laboratory Results - last 24 hr 03/28/24 03/28/24 20:40 21:44 WBC 8.7 RBC 4.62 Hgb 13.7 Hct 41.2 MCV 89.2 MCH 29.7 MCHC 33.3 RDW Std Deviation 44.5 H RDW Coeff of [place] 13.5 Plt Count 257 MPV 9.5 Immature Gran % (Auto) 0.300 Neut % (Auto) 68.7 Lymph % (Auto) 22.3 [place] % (Auto) 6.8 Eos % (Auto) 1.4 Baso % (Auto) 0.5 Absolute Neuts (auto) 6.0 Absolute Lymphs (auto) 1.93 Nucleated RBC % 0 Sodium 142 Potassium 3.7 Chloride 107 Carbon Dioxide 31.0 Anion Gap 4 L BUN 13 Creatinine 0.84 Estim Creat Clear Calc 70.12 Est GFR (MDRD) Af Amer 87 Est GFR (MDRD) Non-Af 72 BUN/Creatinine Ratio 15.6 Glucose 101 Calcium 9.5 Total Bilirubin 0.50 AST 11 L ALT 16 Alkaline Phosphatase 111 Total Protein 7.5 Albumin 3.9 Globulin 3.6 Albumin/Globulin Ratio 1.1 Lipase 70 Urine Color Yellow Urine Clarity Sl. Cloudy Urine pH 6.5 Ur Specific [place] 1.010 Urine Protein Negative Urine Glucose (UA) Normal Urine Ketones Negative Urine Occult Blood Negative Urine Nitrite Negative Urine Bilirubin Negative Urine Urobilinogen Normal Ur Leukocyte Esterase 25 H Urine RBC 0 SEEN Urine WBC 0-5 SEEN Ur Squamous Epith Cells 5-10 SEEN Ur Renal Epithelial Cell 0-5 SEEN Urine Bacteria RARE Urine Mucus 0 SEEN Radiography Diagnostic Testing: Clinical Impression(s) from Imaging Studies Abdomen/Pelvis CT 03/28/24 20:27 IMPRESSION: No acute findings in the abdomen or pelvis. Colonic fecal burden consistent with clinical constipation. Electronically Signed: Delroy Thomas MD at 22:15 EST , <Dr. Duane Velázquez, DO - Last Filed: 03/28/24 23:43> [facility] Narrative Medical decision making narrative: Patient presenting today with concerns for constipation and lower abdominal cramping. She has been constipated over the past 3 weeks but it worsened last week. Her last bowel movement was . She is passing gas. Rectal exam was performed, no fecal impaction. Given her lower abdominal cramping, labs and CT scan of the abdomen and pelvis will be obtained to assess for bowel obstruction, mass, and other etiology. CT scan pending. Workup handed over to the attending. Attending note: I have personally performed a face to face assessment of the patient and have reviewed the [facility] note. I personally made/approved the management plan and take responsibility for the patient management. I performed a substantive portion of the visit including all aspects of the following. My jama findings include: History of your bowel syndrome lower abdominal pain started 3 weeks ago worsened over the past week. Constipation to be bowel movements at least once a day has been needing to use stool softeners last bowel movement 2 days ago. Total hysterectomy in the past. Intermittent nausea. No vomiting. Positive flatus. Exam mild tenderness lower abdomen manage no guarding or rebound. Rectal exam by pulmonary function technician negative for any impaction. Positive bowel sounds. Abdominal labs were normal. CT scan neck for diverticulitis has a normal appendix. There was reported colonic fecal burden. There was no impaction areas noted. Discussed with patient continue her stool softeners twice a day she started on MiraLAX once a day and may increase to twice a day to have daily bowel movements. She denies any opiate pain medicines. Reported hip surgery 6 to 7 months ago with medicines at that time. Outpatient follow-up. All questions were answered. Lab Data Labs: Laboratory Results - last 24 hr 03/28/24 03/28/24 20:40 21:44 WBC 8.7 RBC 4.62 Hgb 13.7 Hct 41.2 MCV 89.2 MCH 29.7 MCHC 33.3 RDW Std Deviation 44.5 H RDW Coeff of [place] 13.5 Plt Count 257 MPV 9.5 Immature Gran % (Auto) 0.300 Neut % (Auto) 68.7 Lymph % (Auto) 22.3 [place] % (Auto) 6.8 Eos % (Auto) 1.4 Baso % (Auto) 0.5 Absolute Neuts (auto) 6.0 Absolute Lymphs (auto) 1.93 Nucleated RBC % 0 Sodium 142 Potassium 3.7 Chloride 107 Carbon Dioxide 31.0 Anion Gap 4 L BUN 13 Creatinine 0.84 Estim Creat Clear Calc 70.12 Est GFR (MDRD) Af Amer 87 Est GFR (MDRD) Non-Af 72 BUN/Creatinine Ratio 15.6 Glucose 101 Calcium 9.5 Total Bilirubin 0.50 AST 11 L ALT 16 Alkaline Phosphatase 111 Total Protein 7.5 Albumin 3.9 Globulin 3.6 Albumin/Globulin Ratio 1.1 Lipase 70 Urine Color Yellow Urine Clarity Sl. Cloudy Urine pH 6.5 Ur Specific [place] 1.010 Urine Protein Negative Urine Glucose (UA) Normal Urine Ketones Negative Urine Occult Blood Negative Urine Nitrite Negative Urine Bilirubin Negative Urine Urobilinogen Normal Ur Leukocyte Esterase 25 H Urine RBC 0 SEEN Urine WBC 0-5 SEEN Ur Squamous Epith Cells 5-10 SEEN Ur Renal Epithelial Cell 0-5 SEEN Urine Bacteria RARE Urine Mucus 0 SEEN Radiography Diagnostic Testing: Clinical Impression(s) from Imaging Studies Abdomen/Pelvis CT 03/28/24 20:27 IMPRESSION: No acute findings in the abdomen or pelvis. Colonic fecal burden consistent with clinical constipation. Electronically Signed: Delroy Thomas MD at 22:15 EST , Discharge Plan Triage Chief Complaint: Constipation ED Midlevel Provider: Sandra Cyr ED Provider: Duane Velázquez Dx/Rx/DC Orders Clinical Impression: Abdominal pain, Constipation Instructions: Abdominal Pain, Treating Constipation, ED Constipation (Adult) Prescriptions: New polyethylene glycol 3350 [Miralax] 17 gram/dose powder 17 g PO DAILY Qty: 238 0RF No Action meloxicam 7.5 mg Tablet 7.5 mg PO BIDCM PRN (Reason: pain) Rx Instructions: Do not take any other nonsteroidal anti-inflammatories while using meloxicam/Mobic. Calcium Magnesium 500 mg calcium -250 mg tablet 2 tab PO DAILY [facility] 40-10-5-3.3 mg tablet 3 tab PO DAILY cholecalciferol (vitamin D3) [Vitamin D3] 125 mcg (5,000 unit) tablet 125 mcg PO DAILY PRN (Reason: SUPPLEMENT) Probiotic 15 billion cell capsule, sprinkle 1 cap PO DAILY Rx Instructions: do not crush/chew/cut; swallow whole OR may open and sprinkle in cold drink/food acetaminophen 500 mg Tablet 1,000 mg PO Q8 Qty: 0 0RF Rx Instructions: Do not take more than 3000 mg Tylenol in a 24-hour period. Primary Care Provider: Aurelia Puga Referrals: Aurelia Puga, RN [facility] [Primary Care Provider] - 1 Week Activity Restrictions/Additional Instructions: CT scan with no diverticulitis normal appendix. Usual stool softeners twice a day once in the morning repeat in the afternoon. Take MiraLAX at least once a day in the morning may repeat to twice a day again in the afternoon for goal of at least 1 bowel movement per day. Follow-up with your doctor. Print Language: Welsh Disposition Disposition: Home, Self Care Discharge Date/Time: 03/28/24 22:50
[2024-03-28 21:13] LABS: ALB/GLOB Ratio 1.1 RATIO (0.9-2.4); AST(SGOT) 11 U/L (15-37); Alanine Aminotransfer ALT/SGPT 16 U/L (13-56); Albumin, Serum 3.9 g/dL (3.2-5.0); Alkaline Phosphatase 111 U/L (45-117); Anion Gap 4 (5-15); BUN 13 mg/dL (7-18); BUN/Creat Ratio 15.6 RATIO (10-20); Calcium,Total 9.5 mg/dL (8.5-10.1); Chloride 107 mmol/L (98-107); Creatinine, Serum 0.84 mg/dL (0.55-1.02); EST Glomerular Filtration Rate 72 mL/min (>60); Est Glom Filt Rate - Afr Amer 87 mL/min (>60); Estimated Creatinine Clearance 70.12 ml/min; Globulin 3.6 g/dL (2.2-4.2); Glucose 101 mg/dL (74-106); Lipase 70 U/L (13-75); Potassium 3.7 mmol/L (3.5-5.1); Protein, Total 7.5 g/dL (6.4-8.2); Sodium Level 142 mmol/L (136-145)
[2024-03-28 21:53] LABS: Mucous, Urine 0 SEEN /hpf (<or=2+); Red Blood Cells-Urine 0 SEEN /hpf (0-5)
[2024-03-28 21:54] LABS: Color, Urine Yellow (Yellow); Glucose, Dipstick Normal (Normal); Ketone-Dipstick Negative (Negative); Leukocyte Esterase-Dipstick 25 /ul (Negative); Nitrite-Dipstick Negative (Negative); Occult Blood-Urine Negative /ul (Negative); Protein-Dipstick Negative (Negative); Urine Bilirubin Dipstick Negative (Negative); Urine Clarity Sl. Cloudy (Clear); Urine Urobilinogen Normal (Normal); Urine pH 6.5 (5.0 - 8.0)
[2024-03-28 22:00] LABS: White Blood Cells 0-5 SEEN /hpf (0-5)
[2024-03-28 22:01] LABS: Bacteria RARE /hpf (None Seen); Renal Epithelial Cells 0-5 SEEN /hpf (0-5); Squamous Epithelial Cells - UA 5-10 SEEN /hpf (5-10)
[2024-03-28 22:47] VITALS: BP 147/95; PULSE 67; RESP 18; TEMP 36.6; O2SAT 97
== END 2024-03-28 22:50 | disposition home or self-care (01) ==
PROVIDERS: Physician Assistant; Emergency Provider Emergency Medicine; PCP Nurse Practitioner Family; Visit Provider Emergency Medicine
DX: K59.00 Constipation, unspecified (principal)
CPT/HCPCS: 74177; 80053; 81001; 83690; 85025; 99282; Q9967; A4216

== ENCOUNTER → 2024-10-13 | Outpatient (CLI) | payer OTHER, SELFPAY ==
--- NOTE | 2024-10-13 10:26 | BI_ITS ---
EXAM: SCRN MAMM (CAD)W/JANINE BILAT DATE: 10/13/2024 CLINICAL HISTORY: F, Age 68 y/o , SCREENING Sisters with breast cancer. BREAST CANCER RISK ASSESSMENT: Not assessed. TECHNIQUE: Bilateral screening digital breast tomosynthesis with 2D and 3D images. Computer aided detection. COMPARISON: Prior exam(s) dated July 06, 2021.. FINDINGS: TISSUE DENSITY: The breast tissue is composed of scattered areas of fibroglandular density. Bilateral Breast Mammographic Findings: No significant masses, calcifications or other abnormalities are identified. No suspicious masses, areas of developing architectural distortion, or suspicious calcifications. There has been no significant interval change. BI/SCRN MAMM (CAD)W/JANINE BILAT IMPRESSION: Stable examination. OVERALL FINAL ASSESSMENT BI-RADS 1: NEGATIVE. RECOMMEND ANNUAL MAMMOGRAPHIC SCREENING. RECOMMENDATION: Routine annual follow-up in 1 Year A letter with findings and recommendations will be mailed to the patient. Reading Location: [place] [id number]
--- NOTE | 2024-10-13 10:29 | BD_ITS ---
PROCEDURE: DEXA BONE DENSITY/APPEND SKEL 10/13/2024 REASON FOR EXAM: F, age 68 y/o . Postmenopausal. TECHNIQUE: DEXA BONE DENSITY/APPEND SKEL COMPARISON: None FINDINGS: BMD and T-SCORES Left 1/3 radius: 0.707 g/cm2, T-score 2.4 Right 1/3 radius: 0.641 g/cm2, T-score 1.1 The World Health Organization has defined the following categories based on bone density: Normal bone density: T-score equal to or greater than -1.0 Osteopenia: T-score between -1.0 and -2.5 Osteoporosis: T-score equal to or less than -2.5 The patient meet the pharmacological treatment recommendations for prevention of osteoporosis. BD/Dexa Bone Density/Append Skel IMPRESSION: NORMAL T-SCORES. Recommend follow-up as clinically warranted. Reading Location: [place] [id number]
== END | disposition home or self-care (01) ==
PROVIDERS: PCP Nurse Practitioner Family; Referring Provider Nurse Practitioner Family; Visit Provider Nurse Practitioner Family
DX: Z13.820 Encounter for screening for osteoporosis (principal); Z78.0 Asymptomatic menopausal state; Z12.31 Encounter for screening mammogram for malignant neoplasm of breast
CPT/HCPCS: 77063; 77067; 77081